=== PATIENT | female | born 1930 | race Caucasian/White ===

== ENCOUNTER 2016-05-17 06:17 | Observation (INO) | payer MEDICARE ==
[2016-05-17] MEDS ORDERED: Acetaminophen TAB* 325 MG PO ONE (07:14)
[2016-05-17] MEDS ORDERED: NS 0.9% 1000 ML* 1,000 ML IV ONE (07:16)
--- NOTE | 2016-05-17 07:19 | ED ---
Bakari Jaimes Claudia, scribed for Alexandra Castillo MD on 05/17/16 at 0715 . Complex/Multi-Sys Presentation - HPI Summary HPI Summary: 85 year old female presents to the ED via EMS from [facility]. Early this am pt had complaints of the inability to swallow and pt was transferred to [facility] ED. Upon arrival pt no longer felt that way and denies any complaints. Pt denies cp, sob, abd pain. Pt denies still, vision changes. No pain. In ED pt fever of 101F temporal is noted. Pt denies any abd pain, N/V and coughing . Pt does admit to some overall weakness. She notes that she is usually more active walking around with the assistance of her walker. Via pt files from [place] pt receives Rx for HTN, neuopathy, and pain. PSHx: appendectomy, hysterectomy. - History Of Current Complaint Chief Complaint: EDFever Time Seen by Provider: 05/17/16 07:01 Hx Obtained From: Patient Onset/Duration: Sudden Onset, Still Present Timing: Constant Severity Currently: None Severity Initially: Mild Location: Negative Associated Signs And Symptoms: Positive: Weakness, Cough, Fever. Negative: Nausea, Vomiting, Abdominal Pain - Allergies/Home Medications Allergies/Adverse Reactions: Allergies Allergy/AdvReac Type Severity Reaction Status Date / Time Baclofen Allergy Altered Verified 01/13/15 09:52 Mental Status Iodixanol [From Visipaque] Allergy Rash Verified 09/11/14 15:03 PMH/Surg Hx/FS Hx/Imm Hx Previously Healthy: Yes Endocrine/Hematology History: Denies: Hx Anticoagulant Therapy, Hx Diabetes, Hx Thyroid Disease Cardiovascular History: Reports: Hx Hypertension Respiratory History: Reports: Hx Sleep Apnea, Other Respiratory Problems/ Disorders - SLEEP APNEA Denies: Hx Asthma, Hx Chronic Obstructive Pulmonary Disease (COPD) GI History: Denies: Hx Ulcer Musculoskeletal History: Reports: Hx Arthritis, Hx Back Problems, Other Musculoskeletal History - MS Sensory History: Reports: Hx Cataracts, Hx Contacts or Glasses Opthamlomology History: Reports: Hx Cataracts, Hx Contacts or Glasses Neurological History: Reports: Other Neuro Impairments/Disorders - Multiple Sclerosis - Cancer History Cancer Type, Location and Year: Breast Cancer 1999, 2008 Lumpectomy. Basal Cell Carcinoma - working on removing them - Surgical History Surgery Procedure, Year, and Place: Lumpectomies, Hysterectomy, Tonsilectomy 1937, Appendectomy 194, Left Wrist surgery 1971, Hip Replacement Right 1992, . Infectious Disease History: No Infectious Disease History: Denies: Hx Hepatitis, Hx Human Immunodeficiency Virus (HIV), Traveled Outside the [place] in Last 30 Days - Family History Known Family History: Negative: Cardiac Disease - Social History Occupation: Retired Lives: [facility] Alcohol Use: None Alcohol Amount: ONE GLASS OF WINE WITH LUNCH Substance Use Type: Reports: None Smoking Status (MU): Never Smoked Tobacco Review of Systems Positive: Fever Eyes: Negative ENT: Negative Cardiovascular: Negative Respiratory: Negative Negative: Shortness Of Breath, Cough Negative: Abdominal Pain, Vomiting, Nausea Genitourinary: Negative Musculoskeletal: Negative Skin: Negative Positive: Weakness Psychological: Normal All Other Systems Reviewed And Are Negative: Yes Physical Exam Triage Information Reviewed: Yes Vital Signs On Initial Exam: Initial Vitals Temp Pulse Resp BP Pulse Ox 100.4 F 89 16 140/74 99 05/17/16 06:17 05/17/16 06:17 05/17/16 06:17 05/17/16 06:17 05/17/16 06:17 Vital Signs Reviewed: Yes Appearance: Positive: No Pain Distress, Ill-Appearing Skin: Positive: Warm, Other - face flushed Head/Face: Positive: Normal Head/Face Inspection Eyes: Positive: Normal, EOMI ENT: Positive: Normal ENT inspection. Negative: Pharyngeal erythema - lips dry , mm pasty Neck: Positive: Supple, Nontender, No Lymphadenopathy Respiratory/Lung Sounds: Positive: Clear to Auscultation, Breath Sounds Present. Negative: Rales, Wheezes Cardiovascular: Positive: Normal. Negative: RRR, Murmur Abdomen Description: Positive: Nontender, No Organomegaly, Soft Bowel Sounds: Positive: Present Musculoskeletal: Positive: Normal, Strength/ROM Intact Neurological: Positive: Normal, Sensory/Motor Intact, Alert, Oriented to Person Place, Time Psychiatric: Positive: Normal AVPU Assessment: Alert - Jv Coma Scale Best Eye Response: 4 - Spontaneous Best Motor Response: 6 - Obeys Commands Best Verbal Response: 5 - Oriented Diagnostics - Vital Signs Vital Signs Temp Pulse Resp BP Pulse Ox 05/17/16 06:34 87 98 05/17/16 06:17 100.4 F 89 16 140/74 99 - Laboratory Result Diagrams: 05/17/16 07:30 02/19/17 07:30 Lab Statement: Any lab studies that have been ordered have been reviewed, and results considered in the medical decision making process. - Radiology CXR Xray Interpretation: No Acute Changes - No acitive cardiopulmonary disease is noted. Radiology Interpretation Completed By: Radiologist Re-Evaluation - Re-Evaluation First Eval Re-Evaluation Time: 07:40 Comment: sats 94% on 2LNC. Pt with + UTI. start ceftriaxone Complex Multi-Symp Course/Dx Assessment/Plan: Pt presents by EMS with report of coughing and feeling choking this morning. pt without complaints at time of eval, but noted to be weak, low sats with fever. Will check CXR, flu, urine,. IVF. blood cx. lactic acid. cbc/cmp. EKG. apap. reassess - Diagnoses Provider Diagnoses: Sepsis, UTI (urinary tract infection), Fever - Physician Notifications Discussed Care Of Patient With: Dr. Mendez Tucker - 08:11 - accepting pt to hospitalist service - lactic acid and influenza pending Time Discussed With Above Provider: 08:11 Instructed by Provider To: Admit As Inpatient Discharge - Discharge Plan Condition: Fair Disposition: ADMITTED TO [facility] The documentation as recorded by the Bakari mirza Claudia accurately reflects the service I personally performed and the decisions made by me, Alexandra Castillo MD.
[2016-05-17 07:42] LABS: Urine Bacteria 1+ (Absent); Urine Bilirubin Negative (Negative); Urine Glucose Negative (Negative); Urine Nitrite Positive (Negative)
[2016-05-17 07:42] LABS: Hematocrit 37 % (35-47); Hemoglobin 12.5 g/dl (12.0-16.0); Mean Corpuscular HGB Conc 34 g/dl (31-36); Mean Corpuscular Hemoglobin 28 pg (27-31); Mean Corpuscular Volume 84 fL (80-97); Mean Platelet Volume 8 um3 (7.4-10.4); Red Blood Count 4.45 10^6/ul (4.0-5.4); Red Cell Distribution Width 14 % (10.5-15); White Blood Count 9.3 10^3/ul (3.5-10.8)
[2016-05-17] MEDS ORDERED: cefTRIAXone(*) 1 GM in NS 0.9% 50 ML* 50 ML IVPB ONE (07:52)
[2016-05-17 08:01] LABS: Albumin 3.5 g/dL (3.2-5.2); BUN/Creatinine Ratio 28.2 (8-20); Calcium 9.5 mg/dL (8.6-10.3); EGFR African American 100.9 (>60); EGFR Non-African American 78.4 (>60); Globulin 3.6 g/dL (2-4); Magnesium 2.1 mg/dL (1.9-2.7); Potassium 3.5 mmol/L (3.5-5.0); Total Bilirubin 0.4 mg/dL (0.2-1.0); Total Protein 7.1 g/dL (6.4-8.9)
[2016-05-17 08:03] LABS: Troponin I 0.01 ng/mL (<0.04)
--- NOTE | 2016-05-17 08:05 | RAD ---
HISTORY: Fever, cough COMPARISONS: February 07, 2016 VIEWS:1: Single frontal portable view of the chest at 7:30 AM FINDINGS: LINES AND TUBES: None. CARDIOMEDIASTINAL SILHOUETTE: The aorta is tortuous. The cardiomediastinal silhouette is otherwise normal for portable technique. PLEURA: The costophrenic angles are sharp. No pleural abnormalities are noted. LUNG PARENCHYMA: The lungs are clear. ABDOMEN: The upper abdomen is clear. There is no subphrenic gas. BONES AND SOFT TISSUES: No bone or soft tissue abnormalities are noted. IMPRESSION: NO ACTIVE CARDIOPULMONARY DISEASE.
[2016-05-17] MEDS ORDERED: NS 0.9% 1000 ML* 1,000 ML IV SCH ×2 (08:15→09:30)
[2016-05-17] MEDS ORDERED: Ondansetron INJ* 2 MG/ML VIAL IV PRN (09:22)
[2016-05-17] MEDS ORDERED: Acetaminophen TAB* 325 MG PO PRN (09:23)
[2016-05-17] MEDS ORDERED: oxyCODONE/Acetamin 5/325 MG* TAB PO PRN ×2 (09:23)
[2016-05-17] MEDS: Multivitamins/Minerals TAB PO SCH (11:18)
[2016-05-17] MEDS: Aspirin TAB* 325 MG PO SCH (11:18)
[2016-05-17] MEDS: Gabapentin CAP(*) 300 MG PO SCH (11:18)
[2016-05-17] MEDS: amLODIPine TAB* 5 MG PO SCH (11:18)
--- NOTE | 2016-05-17 11:42 | HP ---
HISTORY AND PHYSICAL: DATE OF ADMISSION: 05/17/16 PRIMARY CARE PHYSICIAN: Janusz Gardner MD CHIEF COMPLAINT: "Couldn't swallow." HISTORY OF PRESENT ILLNESS: Ms. Cyr is an 85-year-old female with a history of multiple sclerosis, who presents to the emergency room from [place] with complaints of the inability to swallow. The patient states that she woke up at approximately 6 a.m. and felt that there was "a lump" in the throat. The patient states that she had a difficult time clearing her own saliva. She did not try eating breakfast. Because of the difficulty with swallowing her saliva, she was brought to the emergency room for evaluation. The patient states that in general, she has been feeling at her baseline over the last couple of weeks. She denies any fevers or chills. She states that her appetite has been good. She denies any pain. She denies any shortness of breath. She does admit to cough x1 week, but states that she has been around individuals at [place] that have also been ill. She denies any dysuria. She denies diarrhea. She denies abdominal pain. PAST MEDICAL HISTORY: 1. Multiple sclerosis - wheelchair bound. 2. Hypertension. 3. History of recurrent urinary tract infections. 4. Chronic pain. 5. History of breast cancer, status post lumpectomy, radiation and tamoxifen. PAST SURGICAL HISTORY: 1. Left hip percutaneous pinning in February 2016. 2. Hysterectomy. MEDICATIONS: 1. Percocet 5/325 one tab p.o. q. 6 hours p.r.n. pain 1-5, two tabs p.o. q. 6 hours p.r.n. pain 6-10. 2. Senokot-S 2 tabs p.o. q.h.s. 3. Tylenol Extra Strength 1000 mg p.o. q. 8 hours p.r.n. pain. 4. Melatonin 3 mg p.o. q.h.s. 5. Gabapentin 600 mg at 8 a.m. and noon, 900 mg at 8 p.m. 6. Flexeril 10 mg p.o. q.h.s. 7. Silver sulfadiazine apply topically twice daily to coccyx wound. 8. Multivitamin one tab p.o. daily. 9. Celebrex 200 mg p.o. daily. 10. Aspirin 325 mg p.o. daily. 11. Amlodipine 10 mg p.o. daily. ALLERGIES: BACLOFEN. FAMILY HISTORY: Unknown. SOCIAL HISTORY: The patient is a nonsmoker. She does not drink alcohol. 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 She is . She lives at [place]. She has 4 children. Her son, Jim, is her healthcare proxy and is present with her at the time of her admission. REVIEW OF SYSTEMS: The patient denies any fevers, chills, or anorexia. No chest pain. No palpitations. No lower extremity edema. She admits to mild cough. No shortness of breath. No nausea, vomiting, abdominal pain, constipation, diarrhea or hematochezia. No hematuria. No dysuria. She does states that her right side is chronically weak. Her son adds that her right arm is contracted and tucked into her chest. She denies any sudden changes in vision. She admits to the dysphagia this morning, but otherwise, no issues. No joint pains or muscles pain out of the ordinary. No rashes. No anxiety or depression. PHYSICAL EXAMINATION GENERAL: The patient is a well-developed, elderly, chronically ill appearing female, lying in the stretcher, in no acute distress. VITAL SIGNS: Blood pressure 152/71, pulse 85, respirations 16, temperature 101 , O2 saturation 96% on 3 L. HEENT: Pupils are round. Extraocular muscles are intact. Oropharynx is clear. Oral mucosa is dry. There is no submandibular, cervical or supraclavicular adenopathy. NECK: Thyroid is not enlarged. No thyroid nodule is noted. PULMONARY: Lungs are clear to auscultation bilaterally with few coarse sounds at the bases. CARDIAC: Normal S1, S2. Regular rate and rhythm. I do not appreciate any murmurs. There is no lower extremity edema. ABDOMEN: Bowel sounds are present. Abdomen is soft, it is moderately distended (at baseline per son), nontender. MUSCULOSKELETAL: There is no cyanosis or clubbing of the digits. The patient' s right arm is contracted and pulled up to her chest. She has full range of motion of the left upper extremity. Range of motion of the lower extremities is not tested as the patient is unable to participate in this. SKIN: Warm and dry. I did not appreciate any rashes, though the patient does have findings of sun damage to her face. She has a linear surgical wound across the bridge of her nose with sutures in place from recent removal of a skin lesion concerning for cancer. NEUROLOGIC: Deferred at this time as the patient has a difficult time cooperating given her history of multiple sclerosis. PSYCH: The patient is alert. She is oriented x3. She appears very flat and wiped out. LABORATORY DATA: WBC 9.3, hemoglobin of 12.5, hematocrit of 37, platelets 302. Sodium 137, potassium 3.5, chloride 99, CO2 of 29, BUN 20, creatinine 0.71 , and glucose 146, lactic acid 1.5. Calcium 9.5. Magnesium of 2.1, bilirubin 0.4, AST 28, ALT 19, alk phos 114. Troponin 0.01, BNP 75, albumin 3.5. Urinalysis reveals a specific gravity of 1.014, 2+ blood, positive nitrites, 2+ leukocyte esterase, 3+ wbc, 2+ rbc, and 1+ bacteria. Influenza A and B negative. Chest x-ray - no active cardiopulmonary disease. ASSESSMENT AND PLAN: Ms. Cyr is an 85-year-old female who has a history of recurrent urinary tract infections, multiple sclerosis and hypertension, who presents to the emergency room with a sensation that she cannot swallow which has since resolved, but was found to have a fever and probable urinary tract infection. 1. Urinary tract infection. The patient is prone to urinary tract infections per her son. Looking back at her previous microbiology, the patient frequency grows E. coli and Aerococcus species. This has been pansensitive in the past. She will be continued on ceftriaxone that was initiated by the emergency room. We will await the urine culture and sensitivities. The patient's fever is likely secondary to her UTI; however, we will need to monitor for other signs of infection that could be leading to her fever. The patient does give a history of being around individuals at her assisted living facility that have been ill and perhaps she has a viral URI leading to her fever. We will monitor her symptoms. 2. Hypertension. The patient's blood pressure is moderately elevated at this time. However, she has not had her usual dose of amlodipine. We will monitor her blood pressure and treat as needed. 3. Multiple sclerosis. The patient is managed symptomatically. She has quite severe disease. She is wheelchair bound. 4. Chronic pain. The patient will maintained on her usual home medication regimen. 5. DVT prophylaxis. According to the Adult Thrombosis Prophylaxis Risk Factor Assessment Guide, the patient has a total risk factor score of 5, making her high risk. She will be placed on heparin 5000 units subcutaneous q. 8 hours. 6. Code status is DNR and the MOLST form has been updated. Again, the patient indicates that her son, Jim, is her healthcare proxy. TIME SPENT: 65 minutes were spent on admitting this patient. [id number]/[facility] #: [id number] CLARE
[2016-05-17] MEDS: Heparin VIAL(*) 5000 UNITS/ML VIAL (FIVE THOUSAND) SUBCUT SCH ×2 (13:51→20:14)
[2016-05-17] MEDS ORDERED: Gabapentin CAP(*) 300 MG PO SCH (20:00)
[2016-05-17] MEDS: Silver Sulfadiazine 1%* 20 GM TOPICAL SCH (20:13)
[2016-05-17] MEDS ORDERED: Cyclobenzaprine TAB* 10 MG PO SCH (21:00)
[2016-05-17] MEDS ORDERED: Senna TAB PO SCH (21:00)
[2016-05-17] MEDS ORDERED: Melatonin (NF) 3 MG TAB PO SCH (21:00)
[2016-05-17] MEDS ORDERED: Docusate CAP* 100 MG PO SCH (21:00)
[2016-05-18] MEDS: Heparin VIAL(*) 5000 UNITS/ML VIAL (FIVE THOUSAND) SUBCUT SCH ×2 (05:04→13:17)
[2016-05-18 06:58] LABS: Hematocrit 37 % (35-47); Hemoglobin 12.2 g/dl (12.0-16.0); Mean Corpuscular HGB Conc 33 g/dl (31-36); Mean Corpuscular Hemoglobin 28 pg (27-31); Mean Corpuscular Volume 85 fL (80-97); Mean Platelet Volume 8 um3 (7.4-10.4); Red Cell Distribution Width 14 % (10.5-15); White Blood Count 9.5 10^3/ul (3.5-10.8)
[2016-05-18 07:13] LABS: BUN/Creatinine Ratio 12.7 (8-20); Calcium 8.8 mg/dL (8.6-10.3); EGFR African American 135.4 (>60); EGFR Non-African American 105.3 (>60)
[2016-05-18 07:57] VITALS: BP 143/69
[2016-05-18] MEDS ORDERED: cefTRIAXone VIAL(*) 1,000 MG in NS 0.9% 50 ML* 50 ML IVPB SCH (08:00)
[2016-05-18] MEDS: Aspirin TAB* 325 MG PO SCH (08:36)
[2016-05-18] MEDS: Gabapentin CAP(*) 300 MG PO SCH ×2 (08:36→13:16)
[2016-05-18] MEDS: Multivitamins/Minerals TAB PO SCH (08:36)
[2016-05-18] MEDS: amLODIPine TAB* 5 MG PO SCH (08:37)
[2016-05-18] MEDS: Silver Sulfadiazine 1%* 20 GM TOPICAL SCH (08:58)
[2016-05-18] MEDS ORDERED: celeCOXIB CAP* 200 MG PO SCH (09:00)
[2016-05-18] MEDS ORDERED: Potassium Chlor TAB* 20 MEQ TAB.ER PO ONE (10:49)
--- NOTE | 2016-05-18 11:05 | PN ---
Subjective Date of Service: 05/18/16 Interval History: Pt is feeling ok. She states she needs to be changed. She denies any pain. No SOB. Objective Active Medications: Acetaminophen (Tylenol Tab*) 975 mg PO Q8H PRN PRN Reason: PAIN Amlodipine Besylate (Norvasc Tab*) 10 mg PO DAILY [facility], [facility] Last Admin: 05/18/16 08:37 Dose: 10 mg Aspirin (Aspirin Tab*) 325 mg PO DAILY [facility] Last Admin: 05/18/16 08:36 Dose: 325 mg Celecoxib (Celebrex Cap*) 200 mg PO DAILY [facility] Last Admin: 05/18/16 08:36 Dose: 200 mg Cyclobenzaprine HCl (Flexeril Tab*) 10 mg PO BEDTIME [facility] Last Admin: 05/17/16 20:12 Dose: 10 mg Docusate Sodium (Colace Cap*) 100 mg PO BEDTIME [facility] Last Admin: 05/17/16 20:13 Dose: 100 mg Gabapentin (Neurontin Cap(*)) 600 mg PO 0800,1200 [facility] Last Admin: 05/18/16 08:36 Dose: 600 mg Gabapentin (Neurontin Cap(*)) 900 mg PO 2000 [facility] Last Admin: 05/17/16 20:12 Dose: 900 mg Heparin Sodium (Porcine) (Heparin Vial(*)) 5,000 units SUBCUT Q8HR [facility] Last Admin: 05/18/16 05:04 Dose: 5,000 units Ceftriaxone Sodium 1,000 mg/ (Sodium Chloride) 50 mls @ 200 mls/hr IVPB Q24H [facility] Last Admin: 05/18/16 08:29 Dose: 200 mls/hr Melatonin (Melatonin (Nf)) 3 mg PO BEDTIME [facility] PRN Reason: Protocol Last Admin: 05/17/16 20:13 Dose: 3 mg Multivitamins/Minerals (Theragran/Minerals Tab*) 1 tab PO DAILY [facility] Last Admin: 05/18/16 08:36 Dose: 1 tab Ondansetron HCl (Zofran Inj*) 4 mg IV Q6H PRN PRN Reason: NAUSEA Oxycodone/Acetaminophen (Percocet 5/325 Tab*) 1 tab PO Q6HR PRN PRN Reason: Pain 1-5 Oxycodone/Acetaminophen (Percocet 5/325 Tab*) 2 tab PO Q6H PRN PRN Reason: pain 6-10 Senna (Senokot Tab*) 2 tab PO BEDTIME [facility] Last Admin: 05/17/16 20:13 Dose: 2 tab Silver Sulfadiazine (Silvadine 1%*) 1 applic TOPICAL BID [facility] Last Admin: 05/18/16 08:58 Dose: 1 applic Vital Signs 05/17/16 05/17/16 05/17/16 11:18 11:24 12:52 Temperature Pulse Rate Respiratory 20 20 16 Rate Blood Pressure (mmHg) O2 Sat by Pulse Oximetry 05/17/16 05/17/16 05/17/16 16:06 19:57 20:00 Temperature 97.7 F 98.2 F Pulse Rate 87 86 Respiratory 20 18 Rate Blood Pressure 140/64 140/70 (mmHg) O2 Sat by Pulse 93 94 Oximetry 05/17/16 05/17/16 05/17/16 20:12 22:12 23:38 Temperature 97.4 F Pulse Rate 87 Respiratory 16 18 18 Rate Blood Pressure 148/65 (mmHg) O2 Sat by Pulse 93 Oximetry 05/18/16 05/18/16 07:52 08:36 Temperature 98.4 F Pulse Rate 93 Respiratory 16 20 Rate Blood Pressure 143/69 (mmHg) O2 Sat by Pulse 89 Oximetry Oxygen Devices in Use Now: None Appearance: Elderly female sitting up in bed, NAD Eyes: No Scleral Icterus Ears/Nose/Mouth/Throat: Mucous Membranes Moist Respiratory: Symmetrical Chest Expansion and Respiratory Effort, Clear to Auscultation Cardiovascular: NL Sounds; No Murmurs; No JVD, RRR, No Edema Abdominal: NL Sounds; No Tenderness; No Distention Extremities: No Clubbing, Cyanosis Skin: No Rash or Ulcers, No Nodules or Sclerosis Neurological: Alert and Oriented x 3 Result Diagrams: 05/18/16 06:42 05/18/16 06:42 Assess/Plan/Problems-Billing Ms Cyr is an 85 yo F who has a h/o MS and is wheelchair bound and has a h/o recurrent UTIs who presented to the ER with c/o inability to swallow which quickly subsided but was then found to have a fever and evidence of UTI. - Patient Problems (1) UTI (urinary tract infection) Current Visit: Yes Status: Acute Comment: The patient's urine has grown E coli. This is what she frequently grows. Resistant to quinolones and bactrim. Will treat with amoxicillin 500mg BID x 30 days then have the patient follow up with Dr. Mendez to determine if she should remain on furhter suppressive Abx therapy. (2) HTN (hypertension) Current Visit: Yes Status: Chronic Code(s): I10 - ESSENTIAL (PRIMARY) HYPERTENSION SNOMED Code(s): 60298611 Comment: BP is under fair control. Continue amlodipine. (3) Multiple sclerosis Current Visit: Yes Status: Chronic Code(s): G35 - MULTIPLE SCLEROSIS SNOMED Code(s): 35076511 Comment: Continue gabapentin for pain. She is wheelchair bound. (4) Chronic pain Current Visit: Yes Status: Chronic Code(s): G89.29 - OTHER CHRONIC PAIN SNOMED Code(s): 26234434 Comment: Continue gabapentin and prn oxycodone. (5) DVT prophylaxis Current Visit: Yes Status: Acute Code(s): TQO9835 - SNOMED Code(s): 934876742 Comment: SQ heparin (6) DNR (do not resuscitate) Current Visit: Yes Status: Acute
--- NOTE | 2016-05-18 15:01 | PN ---
Progress Note - Progress Note Note: Sutures removed from across the bridge of the patient's nose as requested by the dermatology office as pt missed her appt today. The office will contact the patient for follow up appt.
--- NOTE | 2016-05-18 22:55 | DS ---
DISCHARGE SUMMARY: DATE OF ADMISSION: 05/17/16 DATE OF DISCHARGE: 05/18/16 PRIMARY CARE PROVIDER: Janusz Gardner MD PRINCIPAL DIAGNOSIS: E. coli urinary tract infection. SECONDARY DIAGNOSES: 1. Multiple sclerosis - wheelchair bound. 2. Hypertension. 3. Chronic pain. DISCHARGE MEDICATIONS: 1. Percocet 5/325 one tab p.o. q.6 hours p.r.n. pain 1 to 5, two tabs p.o. q.6 hours p.r.n. pain 6 to 10. 2. Senokot-S 2 tabs p.o. q.h.s. 3. Tylenol Extra Strength 1000 mg p.o. q.8 hours p.r.n. pain. 4. Melatonin 3 mg p.o. q.h.s. 5. Gabapentin 600 mg p.o. at 8 a.m. and noon, 900 mg p.o. at 8 p.m. 6. Flexeril 10 mg p.o. q.h.s. 7. Silver sulfadiazine apply topically twice daily to coccyx wound. 8. Multivitamin 1 tab p.o. daily. 9. Celebrex 200 mg p.o. daily. 10. Aspirin 325 mg p.o. daily. 11. Amlodipine 10 mg p.o. daily. 12. Amoxicillin 500 mg p.o. b.i.d. x30 days. HOSPITAL COURSE: Ms. Cyr is an 85-year-old female with advanced multiple sclerosis who is essentially wheelchair bound and has a history of recurrent urinary tract infections who presents to the emergency room with complaints of inability to swallow. This quickly resolved once she was in ER. While in the ER, however, the patient was found to be febrile to 101 with an abnormal urinalysis. The patient was admitted for evaluation of urinary tract infection. The patient was found to have E. coli in her urine. The patient frequently grows E. coli. I did discuss the case briefly with Dr. Mendez who recommended discharging the patient on amoxicillin 500 mg p.o. twice daily for 1 month and following up with him in outpatient setting to determine if further prolonged suppressive therapy would be beneficial. The patient is feeling about the same as she did in the ER. She is able to swallow without any difficulties and feels that she is ready for discharge back to [facility] today. FOLLOWUP CONCERNS: The patient is being discharged home today, 05/18/16. She is to follow up with Dr. Gardner in the next 4 to 5 days. ACTIVITY LEVEL: As tolerated. DIET: Regular. CONDITION ON DISCHARGE: Stable. TIME SPENT: 25 minutes were spent discharging this patient. CC: Janusz Gardner MD* [id number]/[facility] #: [id number] MTDD
== END 2016-05-18 16:00 ==
LOC: ED 06:17 → MED 08:10
PROVIDERS: ADMIT Hospitalist; ATTEND Hospitalist
DX: N39.0 Urinary tract infection, site not specified (principal); B96.20 Unspecified Escherichia coli [E. coli] as the cause of diseases classified elsewhere; G35 Multiple sclerosis; I10 Essential (primary) hypertension; G89.29 Other chronic pain; Z79.82 Long term (current) use of aspirin; Z79.899 Other long term (current) drug therapy; Z88.8 Allergy status to other drugs, medicaments and biological substances; Z85.3 Personal history of malignant neoplasm of breast
CPT/HCPCS: 36415; 71010; 80048; 80053; 81003; 81015; 83605; 83735; 83880; 84484; 85025; 87040; 87077; 87086; 87186; 87502; 96361; 96365; 96372; 96375; 99285; A9270-GY; G0378; J0696; J1644

== ENCOUNTER 2016-07-11 12:43 | Observation (INO) | payer MEDICARE ==
[2016-07-11] MEDS ORDERED: NS 0.9% 1000 ML* 1,000 ML IV ONE (13:25)
[2016-07-11] MEDS ORDERED: cefTRIAXone(*) 1 GM in NS 0.9% 50 ML* 50 ML IVPB ONE (13:25)
[2016-07-11 13:38] LABS: Hematocrit 36 % (35-47); Hemoglobin 12.1 g/dl (12.0-16.0); Mean Corpuscular HGB Conc 33 g/dl (31-36); Mean Corpuscular Hemoglobin 27 pg (27-31); Mean Corpuscular Volume 82 fL (80-97); Mean Platelet Volume 8 um3 (7.4-10.4); Red Blood Count 4.46 10^6/ul (4.0-5.4); Red Cell Distribution Width 16 % (10.5-15); White Blood Count 8.9 10^3/ul (3.5-10.8)
[2016-07-11 14:09] LABS: Albumin 3.5 g/dL (3.2-5.2); BUN/Creatinine Ratio 22.2 (8-20); C Reactive Protein 15.61 mg/L (< 5.00); EGFR African American 99.2 (>60); EGFR Non-African American 77.2 (>60); Globulin 3.5 g/dL (2-4); Potassium 3.7 mmol/L (3.5-5.0); Total Bilirubin 0.4 mg/dL (0.2-1.0)
--- NOTE | 2016-07-11 14:20 | RAD ---
HISTORY: Sepsis, generalized illness COMPARISONS: May 17, 2016 VIEWS:1: Single frontal portable view of the chest at 2:10 PM FINDINGS: LINES AND TUBES: None. CARDIOMEDIASTINAL SILHOUETTE: The cardiomediastinal silhouette is normal for portable technique. PLEURA: The costophrenic angles are sharp. No pleural abnormalities are noted. LUNG PARENCHYMA: The lungs are clear. ABDOMEN: The upper abdomen is clear. There is no subphrenic gas. BONES AND SOFT TISSUES: No bone or soft tissue abnormalities are noted. IMPRESSION: NO ACTIVE CARDIOPULMONARY DISEASE.
[2016-07-11] MEDS ORDERED: Ondansetron INJ* 2 MG/ML VIAL IV PRN (14:56)
[2016-07-11] MEDS ORDERED: RINSE MT PRN (14:59)
[2016-07-11] MEDS ORDERED: Enoxaparin(*) 40 MG/0.4 ML SYR SUBCUT SCH (15:00)
[2016-07-11] MEDS ORDERED: Cyclobenzaprine TAB* 10 MG PO PRN (15:22)
[2016-07-11] MEDS ORDERED: Melatonin (NF) ** ENTER STRENGTH IN LABEL DIRECTIONS PO PRN (15:24)
[2016-07-11] MEDS: NS 0.9% 1000 ML* 1,000 ML IV SCH (16:52)
[2016-07-11] MEDS: Magic Mouth Was-BEN/MAAL/LIDO SWISH SWAL SCH ×2 (17:00→21:14)
[2016-07-11] MEDS: oxyCODONE/Acetamin 5/325 MG* TAB PO PRN (19:43)
[2016-07-11] MEDS ORDERED: Gabapentin CAP(*) 300 MG PO SCH (21:00)
[2016-07-11] MEDS: Acetaminophen TAB* 325 MG PO PRN ×2 (21:14→21:18)
[2016-07-11] MEDS: Silver Sulfadiazine 1%* 20 GM TOPICAL SCH (21:15)
--- NOTE | 2016-07-11 21:57 | ED ---
Abdoulaye Jaimes Erika, scribed for Carl Powell MD on 07/11/16 at 1407 . Throat Pain/Nasal Congestion - HPI Summary HPI Summary: Patient is an 85-year-old female presenting to the ED with a CC of a constant sore throat starting 3 days ago. Patient also reports a fever yesterday. She denies any nasal congestion or cough. Hx MS. - History of Current Complaint Chief Complaint: EDFever Time Seen by Provider: 07/11/16 13:14 Hx Obtained From: Patient Onset/Duration: Gradual Onset, Lasting Days, Still Present Severity: Moderate Associated Signs And Symptoms: Negative: Sinus Discomfort, Nasal Discharge Cough: None - Allergies/Home Medications Allergies/Adverse Reactions: Allergies Allergy/AdvReac Type Severity Reaction Status Date / Time Baclofen Allergy Altered Verified 01/13/15 09:52 Mental Status Iodixanol [From Visipaque] Allergy Rash Verified 09/11/14 15:03 Home Medications: Home Medications Furosemide TAB* [Lasix TAB*] 20 mg PO DAILY PRN 07/11/16 [History Confirmed ] Gabapentin CAP(*) [Neurontin 300 CAP(*)] 900 mg PO 1700 07/11/16 [History Confirmed 07/11/16] PMH/Surg Hx/FS Hx/Imm Hx Endocrine/Hematology History: Denies: Hx Anticoagulant Therapy, Hx Diabetes, Hx Thyroid Disease Cardiovascular History: Reports: Hx Hypertension Respiratory History: Reports: Hx Sleep Apnea, Other Respiratory Problems/ Disorders - SLEEP APNEA Denies: Hx Asthma, Hx Chronic Obstructive Pulmonary Disease (COPD) GI History: Denies: Hx Ulcer Musculoskeletal History: Reports: Hx Arthritis, Hx Back Problems Sensory History: Reports: Hx Cataracts, Hx Contacts or Glasses Opthamlomology History: Reports: Hx Cataracts, Hx Contacts or Glasses Neurological History: Reports: Other Neuro Impairments/Disorders - Multiple Sclerosis - Cancer History Cancer Type, Location and Year: Breast Cancer 1999, 2009 Lumpectomy. Basal Cell Carcinoma - working on removing them - Surgical History Surgery Procedure, Year, and Place: Lumpectomies, Hysterectomy, Tonsilectomy 1936, Appendectomy 1947, Left Wrist surgery 1971, Hip Replacement Right 1992, . Infectious Disease History: Denies: Hx Hepatitis, Hx Human Immunodeficiency Virus (HIV), Traveled Outside the [place] in Last 30 Days - Family History Known Family History: Negative: Cardiac Disease - Social History Occupation: Retired Alcohol Use: None Hx Substance Use: No Substance Use Type: Reports: None Hx Tobacco Use: No Smoking Status (MU): Never Smoked Tobacco Review of Systems Positive: Fever Positive: Sore Throat. Negative: Nasal Discharge Negative: Cough All Other Systems Reviewed And Are Negative: Yes Physical Exam Triage Information Reviewed: Yes Vital Signs On Initial Exam: Initial Vitals Temp Pulse Resp BP Pulse Ox 100 F 81 20 154/69 94 07/11/16 13:19 07/11/16 13:19 07/11/16 13:19 07/11/16 13:19 07/11/16 13:19 Vital Signs Reviewed: Yes Appearance: Positive: Well-Appearing, No Pain Distress Skin: Positive: Warm, Skin Color Reflects Adequate Perfusion, Dry, Other - Skin tents Head/Face: Positive: Normal Head/Face Inspection Eyes: Positive: Normal ENT: Positive: Pharyngeal erythema, Other - Mucus membranes very dry Neck: Positive: Supple, Nontender Respiratory/Lung Sounds: Positive: Clear to Auscultation, Breath Sounds Present Cardiovascular: Positive: RRR Abdomen Description: Positive: Nontender, Soft Bowel Sounds: Positive: Present Musculoskeletal: Positive: Other - Paralyzed right side Neurological: Positive: Normal Psychiatric: Positive: Affect/Mood Appropriate Diagnostics - Vital Signs Vital Signs Temp Pulse Resp BP Pulse Ox 07/11/16 13:19 100 F 81 20 154/69 94 - Laboratory Lab Results: Lab Results 07/11/16 07/11/16 07/11/16 Range/Units 13:20 13:20 13:20 WBC 8.9 (3.5-10.8) 10^3/ul RBC 4.46 (4.0-5.4) 10^6/ul Hgb 12.1 (12.0-16.0) g/dl Hct 36 (35-47) % MCV 82 (80-97) fL MCH 27 (27-31) pg MCHC 33 (31-36) g/dl RDW 16 H (10.5-15) % Plt Count 245 (150-450) 10^3/ul MPV 8 (7.4-10.4) um3 Neut % (Auto) 41.9 (38-83) % Lymph % (Auto) 42.1 (25-47) % [place] % (Auto) 9.5 H (1-9) % Eos % (Auto) 5.3 (0-6) % Baso % (Auto) 1.2 (0-2) % Absolute Neuts (auto) 3.7 (1.5-7.7) 10^3/ul Absolute Lymphs (auto) 3.7 (1.0-4.8) 10^3/ul Absolute Monos (auto) 0.8 (0-0.8) 10^3/ul Absolute Eos (auto) 0.5 (0-0.6) 10^3/ul Absolute Basos (auto) 0.1 (0-0.2) 10^3/ul Absolute Nucleated RBC 0.01 10^3/ul Nucleated RBC % 0.1 INR (Anticoag Therapy) 1.03 (0.89-1.11) Sodium 137 (133-145) mmol/L Potassium 3.7 (3.5-5.0) mmol/L Chloride 101 (101-111) mmol/L Carbon Dioxide 28 (22-32) mmol/L Anion Gap 8 (2-11) mmol/L BUN 16 (6-24) mg/dL Creatinine 0.72 (0.51-0.95) mg/dL Est GFR ( Amer) 99.2 (>60) Est GFR (Non-Af Amer) 77.2 (>60) BUN/Creatinine Ratio 22.2 H (8-20) Glucose 112 H (70-100) mg/dL Lactic Acid (0.5-2.0) mmol/L Calcium 9.0 (8.6-10.3) mg/dL Total Bilirubin 0.40 (0.2-1.0) mg/dL AST 25 (13-39) U/L ALT 16 (7-52) U/L Alkaline Phosphatase 95 (34-104) U/L Troponin I 0.00 (<0.04) ng/mL C-Reactive Protein 15.61 H (< 5.00) mg/L Total Protein 7.0 (6.4-8.9) g/dL Albumin 3.5 (3.2-5.2) g/dL Globulin 3.5 (2-4) g/dL Albumin/Globulin Ratio 1.0 (1-3) Influenza A (Rapid) (Negative) Influenza B (Rapid) (Negative) Group A Strep Rapid (Negative) 04/15/17 04/15/17 04/15/17 Range/Units 13:20 13:25 14:22 WBC (3.5-10.8) 10^3/ul RBC (4.0-5.4) 10^6/ul Hgb (12.0-16.0) g/dl Hct (35-47) % MCV (80-97) fL MCH (27-31) pg MCHC (31-36) g/dl RDW (10.5-15) % Plt Count (150-450) 10^3/ul MPV (7.4-10.4) um3 Neut % (Auto) (38-83) % Lymph % (Auto) (25-47) % [place] % (Auto) (1-9) % Eos % (Auto) (0-6) % Baso % (Auto) (0-2) % Absolute Neuts (auto) (1.5-7.7) 10^3/ul Absolute Lymphs (auto) (1.0-4.8) 10^3/ul Absolute Monos (auto) (0-0.8) 10^3/ul Absolute Eos (auto) (0-0.6) 10^3/ul Absolute Basos (auto) (0-0.2) 10^3/ul Absolute Nucleated RBC 10^3/ul Nucleated RBC % INR (Anticoag Therapy) (0.89-1.11) Sodium (133-145) mmol/L Potassium (3.5-5.0) mmol/L Chloride (101-111) mmol/L Carbon Dioxide (22-32) mmol/L Anion Gap (2-11) mmol/L BUN (6-24) mg/dL Creatinine (0.51-0.95) mg/dL Est GFR ( Amer) (>60) Est GFR (Non-Af Amer) (>60) BUN/Creatinine Ratio (8-20) Glucose (70-100) mg/dL Lactic Acid 0.9 (0.5-2.0) mmol/L Calcium (8.6-10.3) mg/dL Total Bilirubin (0.2-1.0) mg/dL AST (13-39) U/L ALT (7-52) U/L Alkaline Phosphatase (34-104) U/L Troponin I (<0.04) ng/mL C-Reactive Protein (< 5.00) mg/L Total Protein (6.4-8.9) g/dL Albumin (3.2-5.2) g/dL Globulin (2-4) g/dL Albumin/Globulin Ratio (1-3) Influenza A (Rapid) Negative (Negative) Influenza B (Rapid) Negative (Negative) Group A Strep Rapid Negative (Negative) Result Diagrams: 07/11/16 13:20 07/11/16 13:20 Lab Statement: Any lab studies that have been ordered have been reviewed, and results considered in the medical decision making process. - Radiology CXR Radiology Interpretation Completed By: Radiologist - IMPRESSION: NO ACTIVE CARDIOPULMONARY DISEASE. - EKG 14:25 Cardiac Rate: NL - at 80 bpm EKG Rhythm: Sinus Rhythm ST Segment: Non-Specific EENT Course/Dx - Course Course Of Treatment: Ms. Cyr presented febrile, meeting sepsis and very dehydrated. - Diagnoses Provider Diagnoses: FEVER, Dehydration - Provider Notifications Discussed Care of Patient with: Dr. Patterson (hospitalist) at 14:23 - agrees to admit Discharge - Discharge Plan Condition: Stable Disposition: ADMITTED TO [facility] documentation as recorded by the Abdoulaye mirza Erika accurately reflects the service I personally performed and the decisions made by , Carl Powell MD.
[2016-07-11] MEDS ORDERED: CMCS - Melatonin (NF) 3 MG TAB PO PRN ×2 (22:02→22:46)
--- NOTE | 2016-07-11 22:30 | HP ---
ADMISSION HISTORY AND PHYSICAL: ADDENDUM: DATE OF ADMISSION: 07/11/16 MEDICATIONS: Medication reconciliation completed after receipt of the medications from [place]. Medications are as follows: 1. Amlodipine 10 mg daily. 2. Aspirin 325 mg daily. 3. Celecoxib 200 mg daily. 4. Cyclobenzaprine 10 mg at bedtime. 5. Daily-Nestor daily. 6. Gabapentin, recently increased 900 mg at bedtime and 600 mg twice daily. 7. Lasix 20 mg daily, was completed on , 07/04/16 for swelling in her feet after 10 days of receipt. 8. Melatonin 3 mg at bedtime. 9. Senna 2 tabs at bedtime. 10. Ensure Plus 1 can twice daily. 11. Silver sulfadiazine 1% cream to coccyx twice daily. 12. Acetaminophen 1000 mg every 8 hours as needed for fever. 13. Oxycodone and acetaminophen 5/325 mg 1 to 2 tabs every 6 hours as needed for pain. All medications restarted except for Lasix, which has been terminated. Mary, as the patient indica kami diarrhea. [id number]/[facility] #: [id number]
--- NOTE | 2016-07-11 23:03 | HP ---
ADMISSION HISTORY AND PHYSICAL: DATE OF ADMISSION: 07/11/16 PRIMARY CARE PROVIDER: Janusz Gardner MD HEALTH CARE PROXY: Her son, Jim. CODE STATUS: DNR/DNI, confirmed with the patient. SOURCE OF INFORMATION: History obtained from interview with the patient, review of past medical records. RELIABILITY: Fair. CHIEF COMPLAINT: Sore throat. HISTORY OF PRESENT ILLNESS: This is an 85-year-old female with past medical history of MS, currently wheelchair bound, had been in her usual state of health , approximately 7 days prior started noticing increasingly sore throat. She had no associated cough or nausea or vomiting; however, did notice increasing fatigue over the following week associated with decreased p.o. intake. She saw her PCP 3 days prior to presentation, thought this represented viral illness and had no new medications prescribed. At [facility] today, she was difficult to wake in the morning and go on to continue sleeping at lunch, therefore she was directed to the emergency room. She denies any symptoms including dysuria, frequency, or hesitancy but does note diarrhea approximately once daily for the last week. PAST MEDICAL HISTORY: Multiple sclerosis; hypertension; history of recurrent urinary tract infections; chronic pain, cannot identify where at this time; prior history of breast cancer, status post lumpectomy and radiation therapy and denies chemotherapy. History of left hip pinning in 2016 and hysterectomy. MEDICATIONS: The patient cannot identify her medications at this time. This author discussed with [facility] and they are currently faxing over active medication list. An addendum will appear after this dictation detailing the patient's active medications. ALLERGIES: To BACLOFEN. FAMILY HISTORY: Denies family history of CAD, lung diseases, or multiple sclerosis. SOCIAL HISTORY: She lives at [facility]. No tobacco, alcohol, or illicit. Has 4 children. REVIEW OF SYSTEMS: Positive for sore throat and odynophagia, increasing fatigue , and decreased p.o. intake. Otherwise negative for all other systems reviewed. PHYSICAL EXAMINATION GENERAL: An elderly woman, lying 35 degrees in bed, interactive, pleasant, in no apparent distress. VITAL SIGNS: Blood pressure 154/69, heart rate 81, respiratory rate is 18, she is 98% on room air, and T-max in the emergency room was 100 degrees Fahrenheit. HEENT: Oropharynx is dry. There are no exudates. There is mild posterior erythema. Very dry mucous membranes. Sclerae are anicteric. NECK: Non-elevated JVD. No cervical or supraclavicular lymphadenopathy. LUNGS: Clear to auscultation. HEART: She has regular rate and rhythm. Soft 1/6 to 2/6 systolic ejection murmur. ABDOMEN: Soft, nontender, and nondistended. EXTREMITIES: Warm and well perfused. She has contracted right upper extremity and hand. Trace lower extremity edema. NEUROLOGIC: She is A and O x3. Cranial nerves II through XII are intact. SKIN: Shows a shade complexion in her face as well as some telangiectasia on her face and around her throat. PSYCH: She has no apparent anxiety, agitation, or depression. DIAGNOSTIC STUDIES/LAB DATA: Labs reviewed notable for BUN of 16, creatinine of 0.72, glucose 112, and lactic acid 0.9. CRP is 15. White blood cell count of 8.9, 41% neutrophils, hemoglobin 12, MCV of 82, and platelets 245. Negative for influenza and group A strep on rapid test. Data review: Chest x-ray: Impression: No active cardiopulmonary disease. EKG: Normal sinus rhythm, left axis. Normal intervals. Late R-wave progression. No ST or T-wave changes. ASSESSMENT AND PLAN: This is an 85-year-old female with past medical history of multiple sclerosis, now wheelchair bound, presenting with sore throat for a week associated with fever and increasing fatigue in the setting of decreased p.o. intake. 1. Sore throat: In the absence of leukocytosis, exudates, lymphadenopathy, and in the presence of negative rapid strep I doubt bacterial infection. Received ceftriaxone once in the emergency room and we will not continue. We will reevaluate tomorrow for need. Continue the antibiotics. Prescribed Magic Mouthwash as well as Biotene for xerostomia. Monitor fevers. Tylenol for fevers and pain. 2 L normal saline in the setting of fevers and overall dehydration in the setting of diarrhea and concurrent fevers and infection whether it be viral or bacterial. 2. Hypertension: Restart medications once medication reconciliation completed. 3. Chronic pain: Tylenol, administer oxycodone as needed. 4. DVT prophylaxis: Lovenox. 5. Code status: DNR/DNI. ADDENDUM TO HISTORY AND PHYSICAL: DATE OF ADMISSION: 07/11/16 MEDICATIONS: Medication reconciliation completed after receipt of the medications from [facility]. Medications are as follows: 1. Amlodipine 10 mg daily. 2. Aspirin 325 mg daily. 3. Celecoxib 200 mg daily. 4. Cyclobenzaprine 10 mg at bedtime. 5. Daily-Nestor daily. 6. Gabapentin, recently increased 900 mg at bedtime and 600 mg twice daily. 7. Lasix 20 mg daily, was completed on , 07/04/16 for swelling in her feet after 10 days of receipt. 8. Melatonin 3 mg at bedtime. 9. Senna 2 tabs at bedtime. 10. Ensure Plus 1 can twice daily. 11. Silver sulfadiazine 1% cream to coccyx twice daily. 12. Acetaminophen 1000 mg every 8 hours as needed for fever. 13. Oxycodone and acetaminophen 5/325 mg 1 to 2 tabs every 6 hours as needed for pain. All medications restarted except for Lasix, which has been terminated. Senna, as the patient indicates diarrhea. CC: Dr. Gardner* [id number]/[facility] #: [id number]/[facility] #: [id number] [facility]
[2016-07-12] MEDS: NS 0.9% 1000 ML* 1,000 ML IV SCH (00:44)
[2016-07-12] MEDS: Acetaminophen TAB* 325 MG PO PRN (01:33)
[2016-07-12 06:58] LABS: Hematocrit 39 % (35-47); Hemoglobin 12.8 g/dl (12.0-16.0); Mean Corpuscular HGB Conc 33 g/dl (31-36); Mean Corpuscular Hemoglobin 27 pg (27-31); Mean Corpuscular Volume 82 fL (80-97); Mean Platelet Volume 8 um3 (7.4-10.4); Red Blood Count 4.77 10^6/ul (4.0-5.4); Red Cell Distribution Width 16 % (10.5-15); White Blood Count 9.2 10^3/ul (3.5-10.8)
[2016-07-12 07:11] LABS: BUN/Creatinine Ratio 17.2 (8-20); Calcium 8.6 mg/dL (8.6-10.3); EGFR African American 127.4 (>60); Potassium 3.2 mmol/L (3.5-5.0)
[2016-07-12 07:20] VITALS: BP 159/63
[2016-07-12] MEDS ORDERED: Potassium Chlor TAB* 20 MEQ TAB.ER PO ONE (07:35)
[2016-07-12] MEDS ORDERED: Gabapentin CAP(*) 300 MG PO SCH (08:00)
[2016-07-12] MEDS: Magic Mouth Was-BEN/MAAL/LIDO SWISH SWAL SCH (08:10)
[2016-07-12] MEDS: Silver Sulfadiazine 1%* 20 GM TOPICAL SCH (08:10)
[2016-07-12] MEDS ORDERED: celeCOXIB CAP* 200 MG PO SCH (09:00)
[2016-07-12] MEDS ORDERED: amLODIPine TAB* 5 MG PO SCH (09:00)
[2016-07-12] MEDS ORDERED: Aspirin TAB* 325 MG PO SCH (09:00)
[2016-07-12] MEDS: oxyCODONE/Acetamin 5/325 MG* TAB PO PRN (09:52)
--- NOTE | 2016-07-13 03:32 | DS ---
DISCHARGE SUMMARY: DATE OF ADMISSION: 07/11/16 DATE OF DISCHARGE: 07/12/16 PRIMARY CARE PROVIDER: Dr. Gardner. PRIMARY DIAGNOSIS: Pharyngitis. SECONDARY DIAGNOSES: 1. Multiple sclerosis. 2. Hypertension. 3. Chronic pain. 4. History of breast cancer. 5. Sore throat. MEDICATIONS ON DISCHARGE: 1. Acetaminophen 1000 mg 3 times a day as needed for pain or fever. 2. Multivitamin 1 tablet daily. 3. Oxycodone 5/325 mg 1 to 2 tabs every 6 hours as needed for pain. 4. Celebrex 200 mg daily. 5. Amlodipine 10 mg daily. 6. Silvadene 1% one application twice daily to coccyx. 7. Melatonin 3 mg at bedtime as needed for insomnia. 8. Magic Mouthwash 5 mL swish and swallow 4 times a day as needed for sore throat. 9. Gabapentin 600 mg at 8 in the morning and noon and 900 mg at bedtime. 10. Flexeril 10 mg at bedtime as needed. 11. Aspirin 325 mg daily. PERTINENT MICROBIOLOGY: Rapid influenza and group A strep are negative. HISTORY OF PRESENT ILLNESS AND HOSPITAL COURSE: This is an 85-year-old female with past medical history as outlined in the history of present illness on the day of admission presented to the hospital with 1 week of increasing sore throat associated with increased fatigue and decreased p.o. intake. She was diagnosed with pharyngitis and admitted to the hospital because she could not take in p.o. food, developed dehydration in the setting of her severely sore throat. She received 1 dose of ceftriaxone in the emergency room. Antibiotics were not continued. She was started on Magic Mouthwash with Biotene for her xerostomia with great improvement. On the day of discharge, she still had a mild sore throat; however, was able to tolerate food and liquid. She received crystalloids overnight and was voiding every hour prior to her discharge. She felt ready to be discharged from the hospital. Of note, the patient's son spoke with nursing on the floor and indicates that the patient has been hospitalized every major holiday, thinks that it is an attempt for increased attention from the family. Additionally, son indicated that he has completed paperwork and the patient is to be [facility] to [facility] for increased level of care next week. There were no complications with the patient's hospital stay. At followup, please; 1. Evaluate for resolution of sore throat. 2. No other specific labs or vitals that need followup. Reasons to return to the hospital including but not limited to recurrent or worsening symptoms and inability to eat food or drink water, fevers, chills, night sweats, chest pain, shortness of breath, nausea, vomiting, lightheadedness , bleeding from any source, inability to obtain or tolerate medications were discussed with the patient. She acknowledged understanding. TIME SPENT: Greater than 45 minutes were spent on discharge of this patient, greater than half was spent [id number] with the patient. CC: Dr. Gardner* [id number]/[facility] #: [id number] [facility]
== END 2016-07-12 11:40 ==
LOC: ED 12:43 → MED 14:56
PROVIDERS: ADMIT Internal Medicine; ATTEND Internal Medicine
DX: J02.9 Acute pharyngitis, unspecified (principal); G35 Multiple sclerosis; I10 Essential (primary) hypertension; G89.29 Other chronic pain; I44.4 Left anterior fascicular block; Z85.3 Personal history of malignant neoplasm of breast; Z79.82 Long term (current) use of aspirin; Z79.899 Other long term (current) drug therapy; Z88.1 Allergy status to other antibiotic agents
CPT/HCPCS: 36415; 71010; 80048; 80053; 83605; 84484; 85025; 85610; 86140; 87040; 87502; 87651; 93005; 96372; 96374; 99283; A9270-GY; G0378; J0696; J1650

== ENCOUNTER 2016-09-18 03:53 | Inpatient (IN) | payer MEDICARE ==
[2016-09-18] MEDS ORDERED: NS 0.9% 1000 ML* 1,000 ML IV ONE (04:12)
[2016-09-18] MEDS ORDERED: Acetaminophen TAB* 325 MG PO ONE (04:12)
[2016-09-18 04:52] LABS: Hematocrit 36 % (35-47); Hemoglobin 11.8 g/dl (12.0-16.0); Mean Corpuscular HGB Conc 33 g/dl (31-36); Mean Corpuscular Hemoglobin 27 pg (27-31); Mean Corpuscular Volume 83 fL (80-97); Mean Platelet Volume 9 um3 (7.4-10.4); Red Blood Count 4.34 10^6/ul (4.0-5.4); Red Cell Distribution Width 17 % (10.5-15); White Blood Count 19.2 10^3/ul (3.5-10.8)
[2016-09-18 05:04] LABS: ALT 13 U/L (7-52); AST 23 U/L (13-39); Albumin 3.4 g/dL (3.2-5.2); Alkaline Phosphatase 79 U/L (34-104); Anion Gap 11 mmol/L (2-11); BUN/Creatinine Ratio 17.2 (8-20); Blood Urea Nitrogen 15 mg/dL (6-24); CO2 Carbon Dioxide 24 mmol/L (22-32); Calcium 8.8 mg/dL (8.6-10.3); Chloride 100 mmol/L (101-111); EGFR African American 79.6 (>60); EGFR Non-African American 61.9 (>60); Globulin 3.2 g/dL (2-4); Glucose 200 mg/dL (70-100); Magnesium 1.6 mg/dL (1.9-2.7); Potassium 3.7 mmol/L (3.5-5.0); Sodium 135 mmol/L (133-145); Total Protein 6.6 g/dL (6.4-8.9)
[2016-09-18 05:06] LABS: Troponin I 0.01 ng/mL (<0.04)
[2016-09-18 05:17] LABS: Urine Bacteria 1+ (Absent); Urine Bilirubin Negative (Negative); Urine Glucose Negative (Negative); Urine Nitrite Negative (Negative)
[2016-09-18 05:22] LABS: Alcohol < 10 mg/dL (<10)
--- NOTE | 2016-09-18 05:27 | ED ---
anita Jaimes Timothy, scribed for Reggie Ruelas MD on 09/18/16 at 0412 . HPI Febrile Illness - HPI Summary HPI Summary: Vicky Cyr is an 86 yo female presenting to [facility] with fever, AMS, decreased O2 sat since 0315 this morning. Triage notes Pt received percocet 5/ 325 x1 tab 0217 this morning. Per EMS, she had a glass of wine with dinner tonight. Per nurse, she has a significant Hx of UTI. Her MHx includes HTN, MS, sleep apnea, hysterectomy, arthritis. - History of Current Complaint Time Seen by Provider: 09/18/16 04:12 Hx Obtained From: Patient Onset/Duration: Started Hours Ago, Still Present Time of Onset: 03:15 Timing: Constant Temperature: 101.7 F Initial Severity: Moderate Current Severity: Moderate Pain Intensity: 0 Pain Scale Used: 0-10 Numeric Associated Signs and Symptoms: Altered Mental Status, Other: - decreased O2 sat - Additional Pertinent History Primary Care Physician: [id number] - Allergy/Home Medications Allergies/Adverse Reactions: Allergies Allergy/AdvReac Type Severity Reaction Status Date / Time Aminopyridine [From Ampyra] Allergy Unknown Verified 09/18/16 04:09 Reaction Details Baclofen Allergy Altered Verified 01/13/15 09:52 Mental Status Dalfampridine [From Ampyra] Allergy Unknown Verified 09/18/16 04:09 Reaction Details Iodixanol [From Visipaque] Allergy Rash Verified 09/11/14 15:03 Home Medications: Home Medications Acetaminophen TAB* 650 mg PO Q4HR PRN 09/18/16 [History Confirmed 09/18/16] Bisacodyl SUPP* 10 mg DC DAILY PRN 09/18/16 [History Confirmed 09/18/16] Cholecalciferol TAB* 50,000 units PO MONTHLY 09/18/16 [History Confirmed ] Miralax* 17 gm PO DAILY 09/18/16 [History Confirmed 09/18/16] Mucinex* 1 tab PO BID 09/18/16 [History Confirmed 09/18/16] Senna-S 8.6-50 mg 2 tab PO BEDTIME 09/18/16 [History Confirmed 09/18/16] oxyCODONE/Acetamin 5/325 MG* [Percocet 5/325 TAB*] 1 tab PO Q6H PRN MDD 8 tabs 09/18/16 [History Confirmed 09/18/16] PMH/Surg Hx/FS Hx/Imm Hx Endocrine/Hematology History: Denies: Hx Anticoagulant Therapy, Hx Diabetes, Hx Thyroid Disease Cardiovascular History: Reports: Hx Hypertension Respiratory History: Reports: Hx Sleep Apnea, Other Respiratory Problems/ Disorders - SLEEP APNEA Denies: Hx Asthma, Hx Chronic Obstructive Pulmonary Disease (COPD) GI History: Denies: Hx Ulcer Musculoskeletal History: Reports: Hx Arthritis, Hx Back Problems, Other Musculoskeletal History - MS Sensory History: Reports: Hx Cataracts, Hx Contacts or Glasses Denies: Hx Hearing Aid Opthamlomology History: Reports: Hx Cataracts, Hx Contacts or Glasses Neurological History: Reports: Other Neuro Impairments/Disorders - Multiple Sclerosis - Cancer History Cancer Type, Location and Year: Breast Cancer 1999, 2009 Lumpectomy. Basal Cell Carcinoma - working on removing them - Surgical History Surgery Procedure, Year, and Place: Lumpectomies, Hysterectomy, Tonsilectomy 1936, Appendectomy 1947, Left Wrist surgery 1971, Hip Replacement Right 1992, . Infectious Disease History: Denies: Hx Hepatitis, Hx Human Immunodeficiency Virus (HIV), Traveled Outside the [place] in Last 30 Days - Family History Known Family History: Negative: Cardiac Disease - Social History Alcohol Use: None Alcohol Amount: ONE GLASS OF WINE WITH LUNCH Hx Substance Use: No Substance Use Type: Reports: None Hx Tobacco Use: No Smoking Status (MU): Never Smoked Tobacco Review of Systems Positive: Fever Eyes: Negative ENT: Negative Cardiovascular: Negative Respiratory: Other - decreased O2 sat Gastrointestinal: Negative Genitourinary: Negative Musculoskeletal: Negative Skin: Negative Neurological: Other - AMS Psychological: Normal All Other Systems Reviewed And Are Negative: Yes Physical Exam Triage Information Reviewed: Yes Vital Signs On Initial Exam: Initial Vitals Temp Pulse Resp BP 101.7 F 96 16 134/67 09/18/16 03:53 09/18/16 03:53 09/18/16 03:53 09/18/16 03:53 Vital Signs Reviewed: Yes Completion Of Physical Exam Limited Due To: Dementia Appearance: Positive: No Pain Distress, Ill-Appearing Skin: Positive: Warm, Dry Head/Face: Positive: Normal Head/Face Inspection ENT: Positive: Hearing grossly normal Neck: Positive: Supple Respiratory/Lung Sounds: Positive: Clear to Auscultation, Breath Sounds Present Cardiovascular: Positive: RRR Abdomen Description: Positive: Nontender, Soft Musculoskeletal: Positive: Strength/ROM Intact Diagnostics - Vital Signs Vital Signs Temp Pulse Resp BP 09/18/16 03:53 101.7 F 96 16 134/67 - Laboratory Lab Results: Lab Results 09/18/16 09/18/16 09/18/16 Range/Units 04:05 04:05 04:05 WBC 19.2 H (3.5-10.8) 10^3/ul RBC 4.34 (4.0-5.4) 10^6/ul Hgb 11.8 L (12.0-16.0) g/dl Hct 36 (35-47) % MCV 83 (80-97) fL MCH 27 (27-31) pg MCHC 33 (31-36) g/dl RDW 17 H (10.5-15) % Plt Count 191 (150-450) 10^3/ul MPV 9 (7.4-10.4) um3 Neut % (Auto) 87.1 H (38-83) % Lymph % (Auto) 5.7 L (25-47) % [place] % (Auto) 7.0 (1-9) % Eos % (Auto) 0 (0-6) % Baso % (Auto) 0.2 (0-2) % Absolute Neuts (auto) 16.7 H (1.5-7.7) 10^3/ul Absolute Lymphs (auto) 1.1 (1.0-4.8) 10^3/ul Absolute Monos (auto) 1.3 H (0-0.8) 10^3/ul Absolute Eos (auto) 0 (0-0.6) 10^3/ul Absolute Basos (auto) 0 (0-0.2) 10^3/ul Absolute Nucleated RBC 0 10^3/ul Nucleated RBC % 0 Sodium 135 (133-145) mmol/L Potassium 3.7 (3.5-5.0) mmol/L Chloride 100 L (101-111) mmol/L Carbon Dioxide 24 (22-32) mmol/L Anion Gap 11 (2-11) mmol/L BUN 15 (6-24) mg/dL Creatinine 0.87 (0.51-0.95) mg/dL Est GFR ( Amer) 79.6 (>60) Est GFR (Non-Af Amer) 61.9 (>60) BUN/Creatinine Ratio 17.2 (8-20) Glucose 200 H (70-100) mg/dL Lactic Acid 3.8 H* (0.5-2.0) mmol/L Calcium 8.8 (8.6-10.3) mg/dL Magnesium 1.6 L (1.9-2.7) mg/dL Total Bilirubin 0.50 (0.2-1.0) mg/dL AST 23 (13-39) U/L ALT 13 (7-52) U/L Alkaline Phosphatase 79 (34-104) U/L Troponin I 0.01 (<0.04) ng/mL Total Protein 6.6 (6.4-8.9) g/dL Albumin 3.4 (3.2-5.2) g/dL Globulin 3.2 (2-4) g/dL Albumin/Globulin Ratio 1.1 (1-3) Urine Color Urine Appearance Urine pH (5-9) Ur Specific [place] (1.010-1.030) Urine Protein (Negative) Urine Ketones (Negative) Urine Blood (Negative) Urine Nitrate (Negative) Urine Bilirubin (Negative) Urine Urobilinogen (Negative) Ur Leukocyte Esterase (Negative) Urine WBC (Auto) (Absent) Urine RBC (Auto) (Absent) Ur Squamous Epith Cells (Absent) Urine Bacteria (Absent) Hyaline Casts (Absent) Urine Glucose (Negative) Serum Alcohol < 10 (<10) mg/dL 09/18/16 Range/Units 05:00 WBC (3.5-10.8) 10^3/ul RBC (4.0-5.4) 10^6/ul Hgb (12.0-16.0) g/dl Hct (35-47) % MCV (80-97) fL MCH (27-31) pg MCHC (31-36) g/dl RDW (10.5-15) % Plt Count (150-450) 10^3/ul MPV (7.4-10.4) um3 Neut % (Auto) (38-83) % Lymph % (Auto) (25-47) % [place] % (Auto) (1-9) % Eos % (Auto) (0-6) % Baso % (Auto) (0-2) % Absolute Neuts (auto) (1.5-7.7) 10^3/ul Absolute Lymphs (auto) (1.0-4.8) 10^3/ul Absolute Monos (auto) (0-0.8) 10^3/ul Absolute Eos (auto) (0-0.6) 10^3/ul Absolute Basos (auto) (0-0.2) 10^3/ul Absolute Nucleated RBC 10^3/ul Nucleated RBC % Sodium (133-145) mmol/L Potassium (3.5-5.0) mmol/L Chloride (101-111) mmol/L Carbon Dioxide (22-32) mmol/L Anion Gap (2-11) mmol/L BUN (6-24) mg/dL Creatinine (0.51-0.95) mg/dL Est GFR ( Amer) (>60) Est GFR (Non-Af Amer) (>60) BUN/Creatinine Ratio (8-20) Glucose (70-100) mg/dL Lactic Acid (0.5-2.0) mmol/L Calcium (8.6-10.3) mg/dL Magnesium (1.9-2.7) mg/dL Total Bilirubin (0.2-1.0) mg/dL AST (13-39) U/L ALT (7-52) U/L Alkaline Phosphatase (34-104) U/L Troponin I (<0.04) ng/mL Total Protein (6.4-8.9) g/dL Albumin (3.2-5.2) g/dL Globulin (2-4) g/dL Albumin/Globulin Ratio (1-3) Urine Color Yellow Urine Appearance Cloudy Urine pH 5.0 (5-9) Ur Specific [place] 1.012 (1.010-1.030) Urine Protein 2+(100 mg/dl) H (Negative) Urine Ketones Negative (Negative) Urine Blood Negative (Negative) Urine Nitrate Negative (Negative) Urine Bilirubin Negative (Negative) Urine Urobilinogen Negative (Negative) Ur Leukocyte Esterase Trace H (Negative) Urine WBC (Auto) 1+(6-10/hpf) H (Absent) Urine RBC (Auto) 2+(6-10/hpf) H (Absent) Ur Squamous Epith Cells Present H (Absent) Urine Bacteria 1+ H (Absent) Hyaline Casts Present H (Absent) Urine Glucose Negative (Negative) Serum Alcohol (<10) mg/dL Result Diagrams: 09/18/16 04:05 09/18/16 04:05 Lab Statement: Any lab studies that have been ordered have been reviewed, and results considered in the medical decision making process. - Radiology CXR Xray Interpretation: No Acute Changes - No active cardiopulmonary disease Radiology Interpretation Completed By: ED Physician - EKG 0426 Cardiac Rate: NL - 92 BPM EKG Interpretation: NSR @ 92 BPM, normal EKG. Course/Dx - Course Assessment/Plan: Vicky Cyr is an 86 yo female presenting to [facility] with fever of 101.7, AMS, and decreased O2 sat since 0315 this morning. Pt medication list reviewed this visit. In the ED course she received ASA and IV fluids. Her EKG suggests NSR. Her CXR suggests no active cardiopulmonary disease. After clinical examination and review of her lab and imaging studies, as well as discussion with Dr. Wilkinson, she will be admitted to [facility] for fever. - Diagnoses Provider Diagnoses: Fever - Provider Notifications Discussed Care Of Patient With: Julian Wilkinson - Discussed Pt condition, accepts Pt for admission Time Discussed With Above Provider: 05:31 Instructed by Provider To: Admit As Inpatient Discharge - Discharge Plan Condition: Fair Disposition: ADMITTED TO [facility] Referrals: Janusz Gardner MD [Primary Care Provider] - The documentation as recorded by the anita mirza Timothy accurately reflects the service I personally performed and the decisions made by , Reggie Ruelas MD.
[2016-09-18] MEDS ORDERED: Magnesium Sulfate 2 GM IV* 2 GM/50 ML BAG IVPB ONE (05:33)
[2016-09-18] MEDS ORDERED: Acetaminophen TAB* 325 MG PO PRN (05:35)
[2016-09-18] MEDS ORDERED: Ondansetron INJ* 2 MG/ML VIAL IV PRN (05:37)
[2016-09-18] MEDS ORDERED: Melatonin (NF) 3 MG TAB PO PRN (05:37)
[2016-09-18] MEDS ORDERED: NS 0.9% 1000 ML* 1,000 ML IV SCH (05:45)
[2016-09-18] MEDS ORDERED: CMCS - Melatonin (NF) 3 MG TAB PO PRN (05:48)
--- NOTE | 2016-09-18 05:51 | HP ---
H&P (Free Text) History and Physical: PCP: Camron Gardner MD Date/Time of Evaluation: 09/18/2016 0530 CC: fever HPI: Mrs Cyr is an 86YO female resident of [place] who is confused and unable to contribute to this history beyond current status. When asked where she is replied, "[facility]". Therefore, much of this history was obtained via ED staff and the available medical record. She was brought to [facility] ED via EMS for fever and confusion. Of note she was given a 5/325mg Percocet ~ 0200. She currently denies pain, chest pain, abdominal pain, headache, F/C, N/V , F/C, or other issues. PMedHx multiple sclerosis HTN recurrent UTIs chronic pain HX breast CA Ambulatory Orders Nursing to reconcile. Multiple Vitamins W/ Minerals [Centrum] 1 tab PO DAILY 03/06/16 Aspirin TAB* [Aspirin 325 MG TAB*] 325 mg PO DAILY tab 07/12/16 Cyclobenzaprine TAB* [Flexeril 10 MG TAB*] 10 mg PO BEDTIME PRN #0 tab 07/12/16 Gabapentin CAP(*) [Neurontin 300 CAP(*)] 600 mg PO 0800,1200 cap 07/12/16 Gabapentin CAP(*) [Neurontin 300 CAP(*)] 900 mg PO BEDTIME cap 07/12/16 Melatonin (NF) 3 mg PO BEDTIME PRN #0 tab 07/12/16 amLODIPine TAB* [Norvasc 5 mg TAB*] 10 mg PO DAILY tab 07/12/16 celeCOXIB CAP* [Celebrex CAP*] 200 mg PO DAILY cap 07/12/16 Acetaminophen TAB* 650 mg PO Q4HR PRN 09/18/16 Bisacodyl SUPP* 10 mg UT DAILY PRN 09/18/16 Cholecalciferol TAB* 50,000 units PO MONTHLY 09/18/16 Miralax* 17 gm PO DAILY 09/18/16 Mucinex* 1 tab PO BID 09/18/16 Senna-S 8.6-50 mg 2 tab PO BEDTIME 09/18/16 oxyCODONE/Acetamin 5/325 MG* [Percocet 5/325 TAB*] 1 tab PO Q6H PRN MDD 8 tabs 09/18/16 Allergies Aminopyridine [From Ampyra] Allergy (Verified 09/18/16 04:09) Unknown Reaction Details Baclofen Allergy (Verified 01/13/15 09:52) Altered Mental Status Dalfampridine [From Ampyra] Allergy (Verified 09/18/16 04:09) Unknown Reaction Details Iodixanol [From Visipaque] Allergy (Verified 09/11/14 15:03) Rash PSurgHx hysterectomy L hip pinning SocHx: no tobacco, alcohol, or recreational drug HX; , resides at [place]; full code status, son Jim is her HCP FamHx: unobtainable ROS: as above, otherwise reviewed and all were negative Constitutional: NAD, normally developed, well-nourished elderly white female vitals: Vital Signs Temp 38.7 C 09/18/16 04:00 Pulse 87 09/18/16 05:00 Resp 16 09/18/16 04:00 BP 127/57 09/18/16 05:00 Pulse Ox 95 09/18/16 05:00 Intake & Output 09/17/16 09/17/16 09/18/16 11:59 23:59 11:59 Weight 63.503 kg HEENM: atraumatic; sclera/conjunctiva: non-icteric/clear; hearing: clinically moderately decreased; oropharynx: clear, mucosa moist Neck: soft tissue: non-tender; thyroid: normal Pulmonary: clear to auscultation bilaterally, good aeration, no accessory muscle use CV: RR/RR, normal S1S2, no carotid bruit, no jugular venous distention, 2+ B DP/ PT, no edema Abdominal: soft, non-distended, non-tender, no rebound/guarding/rigidity, normoactive bowel sounds, no hepatosplenomegaly or masses, no costovertebral angle tenderness Musculoskeletal: general: grossly intact, unable to squeeze R hand ? chronicity Integumental: flushed face Psychiatric orientation: AA & oriented to person only affect: somnolent, arouse with voice mood: cooperative eye contact: poor content: unreliable responses: mildly slowed insight: poor Testing: Lab Results 09/18/16 09/18/16 09/18/16 Range/Units 04:05 04:05 04:05 WBC 19.2 H (3.5-10.8) 10^3/ul RBC 4.34 (4.0-5.4) 10^6/ul Hgb 11.8 L (12.0-16.0) g/dl Hct 36 (35-47) % MCV 83 (80-97) fL MCH 27 (27-31) pg MCHC 33 (31-36) g/dl RDW 17 H (10.5-15) % Plt Count 191 (150-450) 10^3/ul MPV 9 (7.4-10.4) um3 Neut % (Auto) 87.1 H (38-83) % Lymph % (Auto) 5.7 L (25-47) % [place] % (Auto) 7.0 (1-9) % Eos % (Auto) 0 (0-6) % Baso % (Auto) 0.2 (0-2) % Absolute Neuts (auto) 16.7 H (1.5-7.7) 10^3/ul Absolute Lymphs (auto) 1.1 (1.0-4.8) 10^3/ul Absolute Monos (auto) 1.3 H (0-0.8) 10^3/ul Absolute Eos (auto) 0 (0-0.6) 10^3/ul Absolute Basos (auto) 0 (0-0.2) 10^3/ul Absolute Nucleated RBC 0 10^3/ul Nucleated RBC % 0 Sodium 135 (133-145) mmol/L Potassium 3.7 (3.5-5.0) mmol/L Chloride 100 L (101-111) mmol/L Carbon Dioxide 24 (22-32) mmol/L Anion Gap 11 (2-11) mmol/L BUN 15 (6-24) mg/dL Creatinine 0.87 (0.51-0.95) mg/dL Est GFR ( Amer) 79.6 (>60) Est GFR (Non-Af Amer) 61.9 (>60) BUN/Creatinine Ratio 17.2 (8-20) Glucose 200 H (70-100) mg/dL Lactic Acid 3.8 H* (0.5-2.0) mmol/L Calcium 8.8 (8.6-10.3) mg/dL Magnesium 1.6 L (1.9-2.7) mg/dL Total Bilirubin 0.50 (0.2-1.0) mg/dL AST 23 (13-39) U/L ALT 13 (7-52) U/L Alkaline Phosphatase 79 (34-104) U/L Troponin I 0.01 (<0.04) ng/mL Total Protein 6.6 (6.4-8.9) g/dL Albumin 3.4 (3.2-5.2) g/dL Globulin 3.2 (2-4) g/dL Albumin/Globulin Ratio 1.1 (1-3) Urine Color Urine Appearance Urine pH (5-9) Ur Specific [place] (1.010-1.030) Urine Protein (Negative) Urine Ketones (Negative) Urine Blood (Negative) Urine Nitrate (Negative) Urine Bilirubin (Negative) Urine Urobilinogen (Negative) Ur Leukocyte Esterase (Negative) Urine WBC (Auto) (Absent) Urine RBC (Auto) (Absent) Ur Squamous Epith Cells (Absent) Urine Bacteria (Absent) Hyaline Casts (Absent) Urine Glucose (Negative) Serum Alcohol < 10 (<10) mg/dL 09/18/16 Range/Units 05:00 WBC (3.5-10.8) 10^3/ul RBC (4.0-5.4) 10^6/ul Hgb (12.0-16.0) g/dl Hct (35-47) % MCV (80-97) fL MCH (27-31) pg MCHC (31-36) g/dl RDW (10.5-15) % Plt Count (150-450) 10^3/ul MPV (7.4-10.4) um3 Neut % (Auto) (38-83) % Lymph % (Auto) (25-47) % [place] % (Auto) (1-9) % Eos % (Auto) (0-6) % Baso % (Auto) (0-2) % Absolute Neuts (auto) (1.5-7.7) 10^3/ul Absolute Lymphs (auto) (1.0-4.8) 10^3/ul Absolute Monos (auto) (0-0.8) 10^3/ul Absolute Eos (auto) (0-0.6) 10^3/ul Absolute Basos (auto) (0-0.2) 10^3/ul Absolute Nucleated RBC 10^3/ul Nucleated RBC % Sodium (133-145) mmol/L Potassium (3.5-5.0) mmol/L Chloride (101-111) mmol/L Carbon Dioxide (22-32) mmol/L Anion Gap (2-11) mmol/L BUN (6-24) mg/dL Creatinine (0.51-0.95) mg/dL Est GFR ( Amer) (>60) Est GFR (Non-Af Amer) (>60) BUN/Creatinine Ratio (8-20) Glucose (70-100) mg/dL Lactic Acid (0.5-2.0) mmol/L Calcium (8.6-10.3) mg/dL Magnesium (1.9-2.7) mg/dL Total Bilirubin (0.2-1.0) mg/dL AST (13-39) U/L ALT (7-52) U/L Alkaline Phosphatase (34-104) U/L Troponin I (<0.04) ng/mL Total Protein (6.4-8.9) g/dL Albumin (3.2-5.2) g/dL Globulin (2-4) g/dL Albumin/Globulin Ratio (1-3) Urine Color Yellow Urine Appearance Cloudy Urine pH 5.0 (5-9) Ur Specific [place] 1.012 (1.010-1.030) Urine Protein 2+(100 mg/dl) H (Negative) Urine Ketones Negative (Negative) Urine Blood Negative (Negative) Urine Nitrate Negative (Negative) Urine Bilirubin Negative (Negative) Urine Urobilinogen Negative (Negative) Ur Leukocyte Esterase Trace H (Negative) Urine WBC (Auto) 1+(6-10/hpf) H (Absent) Urine RBC (Auto) 2+(6-10/hpf) H (Absent) Ur Squamous Epith Cells Present H (Absent) Urine Bacteria 1+ H (Absent) Hyaline Casts Present H (Absent) Urine Glucose Negative (Negative) Serum Alcohol (<10) mg/dL ECG, personally reviewed: 1st degree AV rate 92, diffuse non-specific ST-T changes CXR, personally reviewed: retro-cardiac infiltrate best seen on lateral view Impression: 86F presenting with fever, LLL pneumonia, & UTI DIAGNOSIS & PLAN Primary LLL pneumonia : IV levofloxacin : IVFs : supplemental oxygen : urine Legionella & S pneumo antigens : blood & sputum CXs : supplemental oxygen : supportive care UTI : IV levofloxacin : IVFs : trend leukocytosis : blood & urine CXs : supportive care Secondary multiple sclerosis : no acute issues HTN : review meds once reconciled HX breast CA : no acute issues Admission Rational: inpatient for IVFs & IV ABX to treat LLL pneumonia & UTI in patient at high risk of mortality DVTp: heparin SQ & SCDs Code Status: full cardiac, DNI code status HCP: sonJim
[2016-09-18] MEDS ORDERED: Levofloxacin 500 MG IVPREMIX(* 500 MG/100 ML BAG IVPB ONE (06:00)
[2016-09-18] MEDS: Gabapentin CAP(*) 300 MG PO SCH ×3 (07:58→20:19)
[2016-09-18] MEDS: Omeprazole CAP* 20 MG PO SCH (07:58)
[2016-09-18] MEDS: Docusate CAP* 100 MG PO SCH ×2 (07:58→20:19)
[2016-09-18] MEDS: Polyethylene Glycol 3350* 17 GM PACKET PO SCH (07:59)
[2016-09-18] MEDS: amLODIPine TAB* 5 MG PO SCH ×2 (07:59→11:08)
[2016-09-18] MEDS: celeCOXIB CAP* 200 MG PO SCH ×2 (07:59→11:10)
[2016-09-18] MEDS: Aspirin TAB* 325 MG PO SCH ×2 (07:59→11:10)
--- NOTE | 2016-09-18 08:05 | RAD ---
INDICATION: Fever. COMPARISON: Comparison is made with a prior chest x-ray study from July 11, 2016. TECHNIQUE: Dual-energy PA and lateral views of the chest were obtained. FINDINGS: The heart is within normal limits in size. Mediastinal and hilar contours appear within normal limits. The lungs are underinflated. There is a patchy infiltrate present in the left lower lobe. No pleural effusion is seen. IMPRESSION: LEFT LOWER LOBE INFILTRATE MOST CONSISTENT WITH PNEUMONIA.
[2016-09-18 09:18] LABS: BUN/Creatinine Ratio 22.4 (8-20); Calcium 8.5 mg/dL (8.6-10.3); EGFR Non-African American 72.3 (>60); Potassium 3.6 mmol/L (3.5-5.0)
[2016-09-18] MEDS ORDERED: oxyCODONE/Acetamin 5/325 MG* TAB PO ONE (12:05)
--- NOTE | 2016-09-18 12:59 | PN ---
Subjective Date of Service: 09/18/16 Interval History: Patient seen and examined at bedside. She is very sleepy but does arouse to verbal and tactile stimuli. Patient is able to state "No, nothing hurts" when asked if she is having pain or discomfort. Does not respond to other questions. Daughter in room. She states that patient resides at [facility] and had to move from [place] previously due to inability to provide self care. She states that pt is contracted and "pretty much immobile." She confirms the patient is a DNR. She also states that the sleeping and confusion is "pretty classic for her mother, with her MS and when she gets UTIs." Family History: Unchanged from Admission Social History: Unchanged from Admission Past Medical History: Unchanged from Admission Objective Active Medications: Acetaminophen (Tylenol Tab*) 650 mg PO Q6H PRN PRN Reason: FEVER/PAIN Last Admin: 09/18/16 11:09 Dose: 650 mg Amlodipine Besylate (Norvasc Tab*) 10 mg PO DAILY [facility] Last Admin: 09/18/16 11:08 Dose: 10 mg Aspirin (Aspirin Tab*) 325 mg PO DAILY [facility] Last Admin: 09/18/16 11:10 Dose: 325 mg Celecoxib (Celebrex Cap*) 200 mg PO DAILY [facility] Last Admin: 09/18/16 11:10 Dose: 200 mg Cyclobenzaprine HCl (Flexeril Tab*) 10 mg PO BEDTIME PRN PRN Reason: PAIN Docusate Sodium (Colace Cap*) 200 mg PO BID [facility] Last Admin: 09/18/16 07:58 Dose: Not Given Gabapentin (Neurontin Cap(*)) 600 mg PO 0800,1200 [facility] Last Admin: 09/18/16 10:57 Dose: 600 mg Gabapentin (Neurontin Cap(*)) 900 mg PO BEDTIME [facility] Heparin Sodium (Porcine) (Heparin Vial(*)) 5,000 units SUBCUT Q8HR [facility] Levofloxacin/Dextrose (Levaquin 250 Mg Ivpremx(*)) 250 mg in 50 mls @ 50 mls/ hr IVPB Q24H [facility] Sodium Chloride (Ns 0.9% 1000 Ml*) 1,000 mls @ 75 mls/hr IV PER RATE [facility] Melatonin (Melatonin (Nf)) 3 mg PO BEDTIME PRN; Protocol PRN Reason: INSOMNIA Omeprazole (Prilosec Cap*) 20 mg PO 0730 [facility] Last Admin: 09/18/16 07:58 Dose: Not Given Ondansetron HCl (Zofran Inj*) 4 mg IV Q6H PRN PRN Reason: NAUSEA Polyethylene Glycol/Electrolytes (Miralax*) 17 gm PO DAILY [facility] Last Admin: 09/18/16 07:59 Dose: Not Given Vital Signs 09/18/16 09/18/16 09/18/16 05:55 06:40 06:49 Temperature 99.6 F 99.8 F 99.8 F Pulse Rate 81 71 71 Respiratory 16 18 18 Rate Blood Pressure 120/55 110/43 110/43 (mmHg) O2 Sat by Pulse 94 92 92 Oximetry 09/18/16 09/18/16 09/18/16 09:44 10:57 12:20 Temperature 97.6 F Pulse Rate 67 Respiratory 16 16 16 Rate Blood Pressure 124/50 (mmHg) O2 Sat by Pulse 97 Oximetry 09/18/16 12:24 Temperature Pulse Rate Respiratory 16 Rate Blood Pressure (mmHg) O2 Sat by Pulse Oximetry Oxygen Devices in Use Now: Nasal Cannula - 2Lnc Appearance: Elderly female, very drowsy but arousable, NAD Eyes: No Scleral Icterus Ears/Nose/Mouth/Throat: Mucous Membranes Moist Neck: NL Appearance and Movements; NL JVP Respiratory: Symmetrical Chest Expansion and Respiratory Effort, Clear to Auscultation Cardiovascular: NL Sounds; No Murmurs; No JVD, RRR Abdominal: NL Sounds; No Tenderness; No Distention Extremities: - - right arm/hand contracture, 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 , bilateral foot drop Neurological: - - Drowsy but arousable, follows commands with repeated prompts Lines/Tubes/Other Access: Clean, Dry and Intact Peripheral IV Result Diagrams: 09/18/16 04:05 09/18/16 08:52 Additional Lab and Data: Lab Results 09/18/16 09/18/16 09/18/16 Range/Units 04:05 04:05 04:05 WBC 19.2 H (3.5-10.8) 10^3/ul RBC 4.34 (4.0-5.4) 10^6/ul Hgb 11.8 L (12.0-16.0) g/dl Hct 36 (35-47) % MCV 83 (80-97) fL MCH 27 (27-31) pg MCHC 33 (31-36) g/dl RDW 17 H (10.5-15) % Plt Count 191 (150-450) 10^3/ul MPV 9 (7.4-10.4) um3 Neut % (Auto) 87.1 H (38-83) % Lymph % (Auto) 5.7 L (25-47) % [place] % (Auto) 7.0 (1-9) % Eos % (Auto) 0 (0-6) % Baso % (Auto) 0.2 (0-2) % Absolute Neuts (auto) 16.7 H (1.5-7.7) 10^3/ul Absolute Lymphs (auto) 1.1 (1.0-4.8) 10^3/ul Absolute Monos (auto) 1.3 H (0-0.8) 10^3/ul Absolute Eos (auto) 0 (0-0.6) 10^3/ul Absolute Basos (auto) 0 (0-0.2) 10^3/ul Absolute Nucleated RBC 0 10^3/ul Nucleated RBC % 0 Sodium 135 (133-145) mmol/L Potassium 3.7 (3.5-5.0) mmol/L Chloride 100 L (101-111) mmol/L Carbon Dioxide 24 (22-32) mmol/L Anion Gap 11 (2-11) mmol/L BUN 15 (6-24) mg/dL Creatinine 0.87 (0.51-0.95) mg/dL Est GFR ( Amer) 79.6 (>60) Est GFR (Non-Af Amer) 61.9 (>60) BUN/Creatinine Ratio 17.2 (8-20) Glucose 200 H (70-100) mg/dL Lactic Acid 3.8 H* (0.5-2.0) mmol/L Calcium 8.8 (8.6-10.3) mg/dL Magnesium 1.6 L (1.9-2.7) mg/dL Total Bilirubin 0.50 (0.2-1.0) mg/dL AST 23 (13-39) U/L ALT 13 (7-52) U/L Alkaline Phosphatase 79 (34-104) U/L Troponin I 0.01 (<0.04) ng/mL Total Protein 6.6 (6.4-8.9) g/dL Albumin 3.4 (3.2-5.2) g/dL Globulin 3.2 (2-4) g/dL Albumin/Globulin Ratio 1.1 (1-3) Urine Color Urine Appearance Urine pH (5-9) Ur Specific [place] (1.010-1.030) Urine Protein (Negative) Urine Ketones (Negative) Urine Blood (Negative) Urine Nitrate (Negative) Urine Bilirubin (Negative) Urine Urobilinogen (Negative) Ur Leukocyte Esterase (Negative) Urine WBC (Auto) (Absent) Urine RBC (Auto) (Absent) Ur Squamous Epith Cells (Absent) Urine Bacteria (Absent) Hyaline Casts (Absent) Urine Glucose (Negative) Serum Alcohol < 10 (<10) mg/dL 09/18/16 Range/Units 05:00 WBC (3.5-10.8) 10^3/ul RBC (4.0-5.4) 10^6/ul Hgb (12.0-16.0) g/dl Hct (35-47) % MCV (80-97) fL MCH (27-31) pg MCHC (31-36) g/dl RDW (10.5-15) % Plt Count (150-450) 10^3/ul MPV (7.4-10.4) um3 Neut % (Auto) (38-83) % Lymph % (Auto) (25-47) % [place] % (Auto) (1-9) % Eos % (Auto) (0-6) % Baso % (Auto) (0-2) % Absolute Neuts (auto) (1.5-7.7) 10^3/ul Absolute Lymphs (auto) (1.0-4.8) 10^3/ul Absolute Monos (auto) (0-0.8) 10^3/ul Absolute Eos (auto) (0-0.6) 10^3/ul Absolute Basos (auto) (0-0.2) 10^3/ul Absolute Nucleated RBC 10^3/ul Nucleated RBC % Sodium (133-145) mmol/L Potassium (3.5-5.0) mmol/L Chloride (101-111) mmol/L Carbon Dioxide (22-32) mmol/L Anion Gap (2-11) mmol/L BUN (6-24) mg/dL Creatinine (0.51-0.95) mg/dL Est GFR ( Amer) (>60) Est GFR (Non-Af Amer) (>60) BUN/Creatinine Ratio (8-20) Glucose (70-100) mg/dL Lactic Acid (0.5-2.0) mmol/L Calcium (8.6-10.3) mg/dL Magnesium (1.9-2.7) mg/dL Total Bilirubin (0.2-1.0) mg/dL AST (13-39) U/L ALT (7-52) U/L Alkaline Phosphatase (34-104) U/L Troponin I (<0.04) ng/mL Total Protein (6.4-8.9) g/dL Albumin (3.2-5.2) g/dL Globulin (2-4) g/dL Albumin/Globulin Ratio (1-3) Urine Color Yellow Urine Appearance Cloudy Urine pH 5.0 (5-9) Ur Specific [place] 1.012 (1.010-1.030) Urine Protein 2+(100 mg/dl) H (Negative) Urine Ketones Negative (Negative) Urine Blood Negative (Negative) Urine Nitrate Negative (Negative) Urine Bilirubin Negative (Negative) Urine Urobilinogen Negative (Negative) Ur Leukocyte Esterase Trace H (Negative) Urine WBC (Auto) 1+(6-10/hpf) H (Absent) Urine RBC (Auto) 2+(6-10/hpf) H (Absent) Ur Squamous Epith Cells Present H (Absent) Urine Bacteria 1+ H (Absent) Hyaline Casts Present H (Absent) Urine Glucose Negative (Negative) Serum Alcohol (<10) mg/dL Diagnostic Imaging: ECG, personally reviewed: 1st degree AV rate 92, diffuse non-specific ST-T changes CXR, personally reviewed: retro-cardiac infiltrate best seen on lateral view Assess/Plan/Problems-Billing Assessment: Ms. Cyr is an 86 yo female with a PMH of MS, HTN, recurrent UTIs, chronic pain, and BrCA who was sent by [facility] with concern for fever and confusion and was found to have LLL pneumonia and UTI. - Patient Problems (1) Sepsis Comment: Combination of pneumonia and urinary source Patient meets sepsis criteria with a qSOFA score of 1 for AMS. Patient meets sepsis criteria by SIRS criteria with elevated lactate, leukocytosis, and fever. Continue IV levofloxacin and IVF. Blood cultures pending. (2) LLL pneumonia Code(s): J18.1 - LOBAR PNEUMONIA, UNSPECIFIED ORGANISM Comment: Not in respiratory distress Continue IV levofloxacin, IVF Legionella and S. pneumo antigens pending Blood cx sent, pending Continue supplemental O2 prn Supportive care (3) Lactic acidosis Code(s): E87.2 - ACIDOSIS Comment: Suspect secondary to acute infection Now resolved (4) UTI (urinary tract infection) Comment: Hx of recurrent UTIs Continue IV levofloxacin UA showed 1+ bacteria and trace leukocyte eserase Ace catheter placed here in ED with concern for retention Await urine cx (5) Chronic pain Code(s): G89.29 - OTHER CHRONIC PAIN Comment: Continue gabapentin and prn oxycodone with parameters to hold for sedation. (6) Diabetes Code(s): E11.9 - TYPE 2 DIABETES MELLITUS WITHOUT COMPLICATIONS Comment: Check daily FSBG while in hospital Patient and family have previously indicated limited interventions (also on MOLST) and do not wish to start treatment for hyperglycemia. (7) HTN (hypertension) Code(s): I10 - ESSENTIAL (PRIMARY) HYPERTENSION Comment: Normotensive Continue amlodipine. (8) Multiple sclerosis Code(s): G35 - MULTIPLE SCLEROSIS Comment: Continue gabapentin for pain and prn oxycodone. She is wheelchair bound. (9) DVT prophylaxis Comment: SQ heparin (10) DNR (do not resuscitate) Comment: MOLST updated 09/18 Patient is DNR/DNI Status and Disposition: Inpatient admission. Anticipate LOS >2 days.
[2016-09-18] MEDS: oxyCODONE/Acetamin 5/325 MG* TAB PO PRN (18:18)
[2016-09-18] MEDS ORDERED: Cyclobenzaprine TAB* 10 MG PO PRN (21:00)
[2016-09-19] MEDS: Heparin VIAL(*) 5000 UNITS/ML VIAL (FIVE THOUSAND) SUBCUT SCH ×3 (05:46→22:30)
[2016-09-19] MEDS: Levofloxacin 250 MG IVPREMX(*) 250 MG/50 ML BAG IVPB SCH (05:46)
[2016-09-19] MEDS: oxyCODONE/Acetamin 5/325 MG* TAB PO PRN ×2 (07:09→14:34)
[2016-09-19] MEDS: Omeprazole CAP* 20 MG PO SCH (07:10)
[2016-09-19 07:23] LABS: BUN/Creatinine Ratio 17.3 (8-20); Calcium 8.5 mg/dL (8.6-10.3); EGFR African American 144.1 (>60); EGFR Non-African American 112.1 (>60); Potassium 3.5 mmol/L (3.5-5.0)
[2016-09-19 07:42] LABS: Hematocrit 35 % (35-47); Hemoglobin 11.3 g/dl (12.0-16.0); Mean Corpuscular HGB Conc 33 g/dl (31-36); Mean Corpuscular Hemoglobin 27 pg (27-31); Mean Corpuscular Volume 84 fL (80-97); Mean Platelet Volume 9 um3 (7.4-10.4); Red Blood Count 4.12 10^6/ul (4.0-5.4); Red Cell Distribution Width 17 % (10.5-15); White Blood Count 17.7 10^3/ul (3.5-10.8)
[2016-09-19] MEDS: Gabapentin CAP(*) 300 MG PO SCH ×3 (08:00→20:10)
[2016-09-19] MEDS: Aspirin TAB* 325 MG PO SCH (08:00)
[2016-09-19] MEDS: Docusate CAP* 100 MG PO SCH ×2 (08:00→20:12)
[2016-09-19] MEDS: amLODIPine TAB* 5 MG PO SCH (08:00)
[2016-09-19] MEDS: celeCOXIB CAP* 200 MG PO SCH (08:01)
[2016-09-19] MEDS: Polyethylene Glycol 3350* 17 GM PACKET PO SCH (08:03)
--- NOTE | 2016-09-19 09:16 | PN ---
Subjective Date of Service: 09/19/16 Interval History: Ms. Cyr reports feeling much better and more "awake" today. She believes that she came to the hospital because of confusion but doesn't have much recollection of prior events. She denies complaint today including chest pain, SOB, nausea, or abdominal pain. Family History: Unchanged from Admission Social History: Unchanged from Admission Past Medical History: Unchanged from Admission Objective Active Medications: Acetaminophen (Tylenol Tab*) 650 mg PO Q6H PRN Amlodipine Besylate (Norvasc Tab*) 10 mg PO DAILY [facility] Aspirin (Aspirin Tab*) 325 mg PO DAILY [facility] Celecoxib (Celebrex Cap*) 200 mg PO DAILY [facility] Cyclobenzaprine HCl (Flexeril Tab*) 10 mg PO BEDTIME PRN Docusate Sodium (Colace Cap*) 200 mg PO BID [facility] Gabapentin (Neurontin Cap(*)) 600 mg PO 0800,1200 [facility] Gabapentin (Neurontin Cap(*)) 900 mg PO BEDTIME [facility] Heparin Sodium (Porcine) (Heparin Vial(*)) 5,000 units SUBCUT Q8HR [facility] Levofloxacin/Dextrose (Levaquin 250 Mg Ivpremx(*)) 250 mg in 50 mls @ 50 mls/ hr IVPB Q24H [facility] Sodium Chloride (Ns 0.9% 1000 Ml*) 1,000 mls @ 75 mls/hr IV PER RATE [facility] Melatonin (Melatonin (Nf)) 3 mg PO BEDTIME PRN; Protocol Omeprazole (Prilosec Cap*) 20 mg PO 0730 [facility] Ondansetron HCl (Zofran Inj*) 4 mg IV Q6H PRN Oxycodone/Acetaminophen (Percocet 5/325 Tab*) 1 tab PO Q6H PRN Polyethylene Glycol/Electrolytes (Miralax*) 17 gm PO DAILY [facility] Vital Signs 09/18/16 09/18/16 09/18/16 09:44 10:57 12:20 Temperature 97.6 F Pulse Rate 67 Respiratory 16 16 16 Rate Blood Pressure 124/50 (mmHg) O2 Sat by Pulse 97 Oximetry 09/18/16 09/18/16 09/18/16 12:24 12:57 14:24 Temperature Pulse Rate Respiratory 16 16 16 Rate Blood Pressure (mmHg) O2 Sat by Pulse Oximetry 09/18/16 09/18/16 09/18/16 14:57 15:31 15:41 Temperature 98.0 F Pulse Rate 71 Respiratory 16 20 16 Rate Blood Pressure 136/62 (mmHg) O2 Sat by Pulse 94 Oximetry 09/18/16 09/18/16 09/18/16 16:24 16:57 18:18 Temperature Pulse Rate Respiratory 16 16 16 Rate Blood Pressure (mmHg) O2 Sat by Pulse Oximetry 09/18/16 09/18/16 09/18/16 18:24 18:37 20:00 Temperature 97.5 F Pulse Rate 73 Respiratory 16 16 16 Rate Blood Pressure 135/60 (mmHg) O2 Sat by Pulse 96 Oximetry 09/18/16 09/18/16 09/18/16 20:18 20:19 20:24 Temperature Pulse Rate Respiratory 16 16 16 Rate Blood Pressure (mmHg) O2 Sat by Pulse Oximetry 09/18/16 09/19/16 09/19/16 23:42 07:09 07:30 Temperature 97.5 F 98.0 F Pulse Rate 70 80 Respiratory 16 18 16 Rate Blood Pressure 124/52 135/73 (mmHg) O2 Sat by Pulse 90 90 Oximetry 09/19/16 09/19/16 07:49 08:00 Temperature Pulse Rate Respiratory 16 Rate Blood Pressure (mmHg) O2 Sat by Pulse 90 Oximetry Oxygen Devices in Use Now: None - 2Lnc Appearance: Elderly female sitting up in bed in NAD Eyes: No Scleral Icterus Ears/Nose/Mouth/Throat: Mucous Membranes Moist Neck: Trachea Midline Respiratory: Symmetrical Chest Expansion and Respiratory Effort, Clear to Auscultation Cardiovascular: NL Sounds; No Murmurs; No JVD, No Edema Abdominal: NL Sounds; No Tenderness; No Distention Lymphatic: No Cervical Adenopathy Extremities: No Edema Skin: No Rash or Ulcers Neurological: Alert and Oriented x 3, - - R UE contracted, L UE with +1 strength , only able to move toes weakly to B LEs Nutrition: Taking PO's Result Diagrams: 09/19/16 06:44 09/19/16 06:44 Additional Lab and Data: Lab Results 09/18/16 09/18/16 09/18/16 Range/Units 04:05 04:05 04:05 WBC 19.2 H (3.5-10.8) 10^3/ul RBC 4.34 (4.0-5.4) 10^6/ul Hgb 11.8 L (12.0-16.0) g/dl Hct 36 (35-47) % MCV 83 (80-97) fL MCH 27 (27-31) pg MCHC 33 (31-36) g/dl RDW 17 H (10.5-15) % Plt Count 191 (150-450) 10^3/ul MPV 9 (7.4-10.4) um3 Neut % (Auto) 87.1 H (38-83) % Lymph % (Auto) 5.7 L (25-47) % [place] % (Auto) 7.0 (1-9) % Eos % (Auto) 0 (0-6) % Baso % (Auto) 0.2 (0-2) % Absolute Neuts (auto) 16.7 H (1.5-7.7) 10^3/ul Absolute Lymphs (auto) 1.1 (1.0-4.8) 10^3/ul Absolute Monos (auto) 1.3 H (0-0.8) 10^3/ul Absolute Eos (auto) 0 (0-0.6) 10^3/ul Absolute Basos (auto) 0 (0-0.2) 10^3/ul Absolute Nucleated RBC 0 10^3/ul Nucleated RBC % 0 Sodium 135 (133-145) mmol/L Potassium 3.7 (3.5-5.0) mmol/L Chloride 100 L (101-111) mmol/L Carbon Dioxide 24 (22-32) mmol/L Anion Gap 11 (2-11) mmol/L BUN 15 (6-24) mg/dL Creatinine 0.87 (0.51-0.95) mg/dL Est GFR ( Amer) 79.6 (>60) Est GFR (Non-Af Amer) 61.9 (>60) BUN/Creatinine Ratio 17.2 (8-20) Glucose 200 H (70-100) mg/dL Lactic Acid 3.8 H* (0.5-2.0) mmol/L Calcium 8.8 (8.6-10.3) mg/dL Magnesium 1.6 L (1.9-2.7) mg/dL Total Bilirubin 0.50 (0.2-1.0) mg/dL AST 23 (13-39) U/L ALT 13 (7-52) U/L Alkaline Phosphatase 79 (34-104) U/L Troponin I 0.01 (<0.04) ng/mL Total Protein 6.6 (6.4-8.9) g/dL Albumin 3.4 (3.2-5.2) g/dL Globulin 3.2 (2-4) g/dL Albumin/Globulin Ratio 1.1 (1-3) Urine Color Urine Appearance Urine pH (5-9) Ur Specific [place] (1.010-1.030) Urine Protein (Negative) Urine Ketones (Negative) Urine Blood (Negative) Urine Nitrate (Negative) Urine Bilirubin (Negative) Urine Urobilinogen (Negative) Ur Leukocyte Esterase (Negative) Urine WBC (Auto) (Absent) Urine RBC (Auto) (Absent) Ur Squamous Epith Cells (Absent) Urine Bacteria (Absent) Hyaline Casts (Absent) Urine Glucose (Negative) Serum Alcohol < 10 (<10) mg/dL 09/18/16 Range/Units 05:00 WBC (3.5-10.8) 10^3/ul RBC (4.0-5.4) 10^6/ul Hgb (12.0-16.0) g/dl Hct (35-47) % MCV (80-97) fL MCH (27-31) pg MCHC (31-36) g/dl RDW (10.5-15) % Plt Count (150-450) 10^3/ul MPV (7.4-10.4) um3 Neut % (Auto) (38-83) % Lymph % (Auto) (25-47) % [place] % (Auto) (1-9) % Eos % (Auto) (0-6) % Baso % (Auto) (0-2) % Absolute Neuts (auto) (1.5-7.7) 10^3/ul Absolute Lymphs (auto) (1.0-4.8) 10^3/ul Absolute Monos (auto) (0-0.8) 10^3/ul Absolute Eos (auto) (0-0.6) 10^3/ul Absolute Basos (auto) (0-0.2) 10^3/ul Absolute Nucleated RBC 10^3/ul Nucleated RBC % Sodium (133-145) mmol/L Potassium (3.5-5.0) mmol/L Chloride (101-111) mmol/L Carbon Dioxide (22-32) mmol/L Anion Gap (2-11) mmol/L BUN (6-24) mg/dL Creatinine (0.51-0.95) mg/dL Est GFR ( Amer) (>60) Est GFR (Non-Af Amer) (>60) BUN/Creatinine Ratio (8-20) Glucose (70-100) mg/dL Lactic Acid (0.5-2.0) mmol/L Calcium (8.6-10.3) mg/dL Magnesium (1.9-2.7) mg/dL Total Bilirubin (0.2-1.0) mg/dL AST (13-39) U/L ALT (7-52) U/L Alkaline Phosphatase (34-104) U/L Troponin I (<0.04) ng/mL Total Protein (6.4-8.9) g/dL Albumin (3.2-5.2) g/dL Globulin (2-4) g/dL Albumin/Globulin Ratio (1-3) Urine Color Yellow Urine Appearance Cloudy Urine pH 5.0 (5-9) Ur Specific [place] 1.012 (1.010-1.030) Urine Protein 2+(100 mg/dl) H (Negative) Urine Ketones Negative (Negative) Urine Blood Negative (Negative) Urine Nitrate Negative (Negative) Urine Bilirubin Negative (Negative) Urine Urobilinogen Negative (Negative) Ur Leukocyte Esterase Trace H (Negative) Urine WBC (Auto) 1+(6-10/hpf) H (Absent) Urine RBC (Auto) 2+(6-10/hpf) H (Absent) Ur Squamous Epith Cells Present H (Absent) Urine Bacteria 1+ H (Absent) Hyaline Casts Present H (Absent) Urine Glucose Negative (Negative) Serum Alcohol (<10) mg/dL Microbiology and Other Data: Microbiology 09/18/16 14:45 Legionella Urinary Antigen - Final Urine Negative Legionella Streptococcus pneumoniae Ag Screen - Final Negative S. pneumo Antigen Diagnostic Imaging: ECG, personally reviewed: 1st degree AV rate 92, diffuse non-specific ST-T changes CXR, personally reviewed: retro-cardiac infiltrate best seen on lateral view Assess/Plan/Problems-Billing Assessment: Ms. Cyr is an 86 yo female with a PMH of MS, HTN, recurrent UTIs, chronic pain, and BrCA who was sent by [facility] with concern for fever and confusion and was found to have LLL pneumonia and UTI. - Patient Problems (1) Sepsis Current Visit: Yes Status: Acute Comment: - Resolving. Mentation back to baseline. WBC falling. Pt afebrile x 24 hrs. - Combination of pneumonia and urinary source. On arrival, pt met sepsis criteria with a qSOFA score of 1 for AMS and by SIRS criteria with elevated lactate, leukocytosis, and fever. - Continue IV levofloxacin, D/C IVF. (2) LLL pneumonia Comment: - Now off O2. - Chest xray with LL pneumonia on arrival. Legionella and S. pneumo antigens negative. Blood cx with NGTD. - Continue IV levofloxacin, D/C IVF. (3) UTI (urinary tract infection) Comment: - UA showed 1+ bacteria and trace leukocyte eserase. - Continue IV levofloxacin. - Ace catheter placed here in ED with concern for retention, D/C now. - Monitor urine cx. (4) HTN (hypertension) Comment: - BP well controlled. - Continue amlodipine. (5) Multiple sclerosis Comment: - Continue gabapentin, oxycodone, flexeril, and celecoxib for chronic pain. - She is wheelchair bound at baseline. (6) Diabetes Comment: - Patient and family have previously indicated that they do not wish to start treatment for hyperglycemia. - D/C FS. (7) DNR (do not resuscitate) Comment: - MOLST updated 09/18. Patient is DNR/DNI. (8) DVT prophylaxis Comment: - SQ heparin. Status and Disposition: Inpatient admission. Anticipate discharge back to [facility] when medically stable.
[2016-09-20] MEDS: oxyCODONE/Acetamin 5/325 MG* TAB PO PRN ×2 (01:29→06:36)
[2016-09-20] MEDS: Levofloxacin 250 MG IVPREMX(*) 250 MG/50 ML BAG IVPB SCH (05:05)
[2016-09-20] MEDS: Heparin VIAL(*) 5000 UNITS/ML VIAL (FIVE THOUSAND) SUBCUT SCH (05:34)
[2016-09-20 06:15] LABS: Hematocrit 37 % (35-47); Hemoglobin 11.9 g/dl (12.0-16.0); Mean Corpuscular HGB Conc 32 g/dl (31-36); Mean Corpuscular Hemoglobin 28 pg (27-31); Mean Corpuscular Volume 87 fL (80-97); Mean Platelet Volume 9 um3 (7.4-10.4); Red Blood Count 4.27 10^6/ul (4.0-5.4); Red Cell Distribution Width 17 % (10.5-15); White Blood Count 11.2 10^3/ul (3.5-10.8)
--- NOTE | 2016-09-20 08:05 | PN ---
Subjective Date of Service: 09/20/16 Interval History: Ms. Cyr states that she is feeling quite well this morning and is eager for discharge back home to [place]. She denies chest pain, SOB, nausea, or abdominal pain. Family History: Unchanged from Admission Social History: Unchanged from Admission Past Medical History: Unchanged from Admission Objective Active Medications: Acetaminophen (Tylenol Tab*) 650 mg PO Q6H PRN Amlodipine Besylate (Norvasc Tab*) 10 mg PO DAILY ENDER Aspirin (Aspirin Tab*) 325 mg PO DAILY ENDER Celecoxib (Celebrex Cap*) 200 mg PO DAILY ENDER Cyclobenzaprine HCl (Flexeril Tab*) 10 mg PO BEDTIME PRN Docusate Sodium (Colace Cap*) 200 mg PO BID ENDER Gabapentin (Neurontin Cap(*)) 600 mg PO 0800,1200 ENDER Gabapentin (Neurontin Cap(*)) 900 mg PO BEDTIME ENDER Heparin Sodium (Porcine) (Heparin Vial(*)) 5,000 units SUBCUT Q8HR ENDER Levofloxacin/Dextrose (Levaquin 250 Mg Ivpremx(*)) 250 mg in 50 mls @ 50 mls/ hr IVPB Q24H ENDER Melatonin (Melatonin (Nf)) 3 mg PO BEDTIME PRN; Protocol Omeprazole (Prilosec Cap*) 20 mg PO 0730 ENDER Ondansetron HCl (Zofran Inj*) 4 mg IV Q6H PRN Oxycodone/Acetaminophen (Percocet 5/325 Tab*) 1 tab PO Q6H PRN Polyethylene Glycol/Electrolytes (Miralax*) 17 gm PO DAILY [facility] Vital Signs 09/19/16 09/19/16 09/19/16 09:09 11:37 12:46 Temperature 97.7 F Pulse Rate 69 Respiratory 16 16 16 Rate Blood Pressure 126/53 (mmHg) O2 Sat by Pulse 94 Oximetry 09/19/16 09/19/16 09/19/16 14:34 15:18 16:34 Temperature 97.8 F Pulse Rate 74 Respiratory 18 20 16 Rate Blood Pressure 129/61 (mmHg) O2 Sat by Pulse 92 Oximetry 09/19/16 09/19/16 09/19/16 19:42 20:00 20:10 Temperature 97.9 F Pulse Rate 77 Respiratory 20 16 16 Rate Blood Pressure 137/68 (mmHg) O2 Sat by Pulse 93 Oximetry 09/19/16 09/19/16 09/20/16 23:36 23:45 01:29 Temperature 98.4 F Pulse Rate 72 Respiratory 16 16 Rate Blood Pressure 136/58 (mmHg) O2 Sat by Pulse 89 91 Oximetry 09/20/16 09/20/16 04:39 06:36 Temperature 98.2 F Pulse Rate 74 Respiratory 16 16 Rate Blood Pressure 144/64 (mmHg) O2 Sat by Pulse 95 Oximetry Oxygen Devices in Use Now: None - 2Lnc Appearance: Female sitting up in bed in NAD Eyes: No Scleral Icterus Ears/Nose/Mouth/Throat: Mucous Membranes Moist Neck: Trachea Midline Respiratory: Symmetrical Chest Expansion and Respiratory Effort, Clear to Auscultation Cardiovascular: NL Sounds; No Murmurs; No JVD, No Edema Abdominal: NL Sounds; No Tenderness; No Distention Lymphatic: No Cervical Adenopathy Extremities: No Edema Skin: No Rash or Ulcers Neurological: Alert and Oriented x 3, - - Contractions and weakness bilaterally , unchanged Result Diagrams: 09/20/16 05:33 09/19/16 06:44 Additional Lab and Data: Lab Results 09/18/16 09/18/16 09/18/16 Range/Units 04:05 04:05 04:05 WBC 19.2 H (3.5-10.8) 10^3/ul RBC 4.34 (4.0-5.4) 10^6/ul Hgb 11.8 L (12.0-16.0) g/dl Hct 36 (35-47) % MCV 83 (80-97) fL MCH 27 (27-31) pg MCHC 33 (31-36) g/dl RDW 17 H (10.5-15) % Plt Count 191 (150-450) 10^3/ul MPV 9 (7.4-10.4) um3 Neut % (Auto) 87.1 H (38-83) % Lymph % (Auto) 5.7 L (25-47) % [place] % (Auto) 7.0 (1-9) % Eos % (Auto) 0 (0-6) % Baso % (Auto) 0.2 (0-2) % Absolute Neuts (auto) 16.7 H (1.5-7.7) 10^3/ul Absolute Lymphs (auto) 1.1 (1.0-4.8) 10^3/ul Absolute Monos (auto) 1.3 H (0-0.8) 10^3/ul Absolute Eos (auto) 0 (0-0.6) 10^3/ul Absolute Basos (auto) 0 (0-0.2) 10^3/ul Absolute Nucleated RBC 0 10^3/ul Nucleated RBC % 0 Sodium 135 (133-145) mmol/L Potassium 3.7 (3.5-5.0) mmol/L Chloride 100 L (101-111) mmol/L Carbon Dioxide 24 (22-32) mmol/L Anion Gap 11 (2-11) mmol/L BUN 15 (6-24) mg/dL Creatinine 0.87 (0.51-0.95) mg/dL Est GFR ( Amer) 79.6 (>60) Est GFR (Non-Af Amer) 61.9 (>60) BUN/Creatinine Ratio 17.2 (8-20) Glucose 200 H (70-100) mg/dL Lactic Acid 3.8 H* (0.5-2.0) mmol/L Calcium 8.8 (8.6-10.3) mg/dL Magnesium 1.6 L (1.9-2.7) mg/dL Total Bilirubin 0.50 (0.2-1.0) mg/dL AST 23 (13-39) U/L ALT 13 (7-52) U/L Alkaline Phosphatase 79 (34-104) U/L Troponin I 0.01 (<0.04) ng/mL Total Protein 6.6 (6.4-8.9) g/dL Albumin 3.4 (3.2-5.2) g/dL Globulin 3.2 (2-4) g/dL Albumin/Globulin Ratio 1.1 (1-3) Urine Color Urine Appearance Urine pH (5-9) Ur Specific [place] (1.010-1.030) Urine Protein (Negative) Urine Ketones (Negative) Urine Blood (Negative) Urine Nitrate (Negative) Urine Bilirubin (Negative) Urine Urobilinogen (Negative) Ur Leukocyte Esterase (Negative) Urine WBC (Auto) (Absent) Urine RBC (Auto) (Absent) Ur Squamous Epith Cells (Absent) Urine Bacteria (Absent) Hyaline Casts (Absent) Urine Glucose (Negative) Serum Alcohol < 10 (<10) mg/dL 09/18/16 Range/Units 05:00 WBC (3.5-10.8) 10^3/ul RBC (4.0-5.4) 10^6/ul Hgb (12.0-16.0) g/dl Hct (35-47) % MCV (80-97) fL MCH (27-31) pg MCHC (31-36) g/dl RDW (10.5-15) % Plt Count (150-450) 10^3/ul MPV (7.4-10.4) um3 Neut % (Auto) (38-83) % Lymph % (Auto) (25-47) % [place] % (Auto) (1-9) % Eos % (Auto) (0-6) % Baso % (Auto) (0-2) % Absolute Neuts (auto) (1.5-7.7) 10^3/ul Absolute Lymphs (auto) (1.0-4.8) 10^3/ul Absolute Monos (auto) (0-0.8) 10^3/ul Absolute Eos (auto) (0-0.6) 10^3/ul Absolute Basos (auto) (0-0.2) 10^3/ul Absolute Nucleated RBC 10^3/ul Nucleated RBC % Sodium (133-145) mmol/L Potassium (3.5-5.0) mmol/L Chloride (101-111) mmol/L Carbon Dioxide (22-32) mmol/L Anion Gap (2-11) mmol/L BUN (6-24) mg/dL Creatinine (0.51-0.95) mg/dL Est GFR ( Amer) (>60) Est GFR (Non-Af Amer) (>60) BUN/Creatinine Ratio (8-20) Glucose (70-100) mg/dL Lactic Acid (0.5-2.0) mmol/L Calcium (8.6-10.3) mg/dL Magnesium (1.9-2.7) mg/dL Total Bilirubin (0.2-1.0) mg/dL AST (13-39) U/L ALT (7-52) U/L Alkaline Phosphatase (34-104) U/L Troponin I (<0.04) ng/mL Total Protein (6.4-8.9) g/dL Albumin (3.2-5.2) g/dL Globulin (2-4) g/dL Albumin/Globulin Ratio (1-3) Urine Color Yellow Urine Appearance Cloudy Urine pH 5.0 (5-9) Ur Specific [place] 1.012 (1.010-1.030) Urine Protein 2+(100 mg/dl) H (Negative) Urine Ketones Negative (Negative) Urine Blood Negative (Negative) Urine Nitrate Negative (Negative) Urine Bilirubin Negative (Negative) Urine Urobilinogen Negative (Negative) Ur Leukocyte Esterase Trace H (Negative) Urine WBC (Auto) 1+(6-10/hpf) H (Absent) Urine RBC (Auto) 2+(6-10/hpf) H (Absent) Ur Squamous Epith Cells Present H (Absent) Urine Bacteria 1+ H (Absent) Hyaline Casts Present H (Absent) Urine Glucose Negative (Negative) Serum Alcohol (<10) mg/dL Microbiology and Other Data: Microbiology 09/18/16 14:45 Legionella Urinary Antigen - Final Urine Negative Legionella Streptococcus pneumoniae Ag Screen - Final Negative S. pneumo Antigen Diagnostic Imaging: ECG, personally reviewed: 1st degree AV rate 92, diffuse non-specific ST-T changes CXR, personally reviewed: retro-cardiac infiltrate best seen on lateral view Assess/Plan/Problems-Billing Assessment: Ms. Cyr is an 86 yo female with a PMH of MS, HTN, recurrent UTIs, chronic pain, and BrCA who was sent by [facility] with concern for fever and confusion and was found to have LLL pneumonia and UTI. - Patient Problems (1) Sepsis Current Visit: Yes Status: Acute Comment: - Resolved. Mentation back to baseline. WBC falling. Pt afebrile x 24 hrs. - Combination of pneumonia and urinary source. On arrival, pt met sepsis criteria with a qSOFA score of 1 for AMS and by SIRS criteria with elevated lactate, leukocytosis, and fever. - Complete course of levaquin. (2) LLL pneumonia Comment: - Now off O2. - Chest xray with LL pneumonia on arrival. Legionella and S. pneumo antigens negative. Blood cx with NGTD. - Complete course of levaquin. (3) UTI (urinary tract infection) Comment: - UA showed 1+ bacteria and trace leukocyte eserase. - Complete course of levaquin. - Monitor urine cx. (4) HTN (hypertension) Comment: - BP well controlled. - Continue amlodipine. (5) Multiple sclerosis Comment: - Continue gabapentin, oxycodone, flexeril, and celecoxib for chronic pain. - She is wheelchair bound at baseline. (6) Diabetes Comment: - Patient and family have previously indicated that they do not wish to start treatment for hyperglycemia. (7) DNR (do not resuscitate) Comment: - MOLST updated 09/18. Patient is DNR/DNI. (8) DVT prophylaxis Comment: - SQ heparin. Status and Disposition: Inpatient admission. Discharge to [place].
[2016-09-20] MEDS: Gabapentin CAP(*) 300 MG PO SCH ×2 (09:47→12:38)
[2016-09-20] MEDS: Aspirin TAB* 325 MG PO SCH (09:48)
[2016-09-20] MEDS: Omeprazole CAP* 20 MG PO SCH (09:48)
[2016-09-20] MEDS: Docusate CAP* 100 MG PO SCH (09:48)
[2016-09-20] MEDS: amLODIPine TAB* 5 MG PO SCH (09:48)
[2016-09-20] MEDS: celeCOXIB CAP* 200 MG PO SCH (09:49)
[2016-09-20] MEDS: Polyethylene Glycol 3350* 17 GM PACKET PO SCH (10:11)
[2016-09-20 10:13] VITALS: BP 136/59
--- NOTE | 2016-09-20 13:45 | DS ---
CC: Dr. Gardner* [facility] MEDICINE DISCHARGE SUMMARY: DATE OF ADMISSION: 09/18/2016 DATE OF DISCHARGE: 09/20/2016 ATTENDING PHYSICIAN: Angel Staley MD * (dictation provided by Kiya Pham NP) PRIMARY DIAGNOSIS: 1. Sepsis. 2. Pneumonia. 3. Urinary tract infection. SECONDARY DIAGNOSES: 1. Multiple sclerosis. 2. Hypertension. 3. Recurrent urinary tract infections. 4. Chronic pain. 5. History of breast cancer. MEDICATIONS AT THE TIME OF DISCHARGE:: 1. Levaquin 250 mg p.o. daily x5 days. 2. Senna 8.6/50 two tabs p.o. at bedtime. 3. Mucinex 1 tab p.o. b.i.d. 4. MiraLAX 17 grams p.o. daily. 5. Cholecalciferol 50,000 unit p.o. monthly. 6. Bisacodyl suppository 10 mg per rectum daily p.r.n. 7. Tylenol 650 mg p.o. every 4 hours p.r.n. 8. Cyclobenzaprine 10 mg p.o. at bedtime p.r.n. 9. Aspirin 325 mg p.o. daily. 10. Gabapentin 900 mg p.o. at bedtime; 600 mg p.o. at 8 o'clock and noon. 11. Multivitamin with mineral 1 tab p.o. daily. 12. Melatonin 3 mg p.o. at bedtime p.r.n. 13. Celecoxib 200 mg p.o. daily. 14. Amlodipine 10 mg p.o. daily. 15. Oxycodone with acetaminophen 5/325 mg one tab p.o. every 6 hours p.r.n. HOSPITAL COURSE: Ms. Cyr is an 86-year-old female from [facility] who presented to the hospital on 09/18/16 with concern for a fever. Please see dictated H and P from Julian Wilkinson MD for complete details. In brief, the patient presented to the ED with reported fever and confusion. In the emergency room she had chest x-ray which showed concern for a left lower lobe pneumonia, a positive UA, a fever of 101.7, and a white count of 19.2. Ms. Cyr was admitted to the hospital for treatment of sepsis. She was treated with intravenous Levaquin for pneumonia and UTI. With this, Ms. Cyr has been doing very well. She is not requiring any oxygen. Her confusion has resolved. She is afebrile. Her white blood cell count has returned to essentially normal at 11.2 today. Ms. Cyr is medically stable for discharge to [facility] to continue course of Levaquin for treatment of suspected left lower lobe pneumonia and concomitant UTI. The urine culture results are still pending at the time of discharge and those can be followed up on by the providers at [facility]. DISPOSITION: To [facility]. DIET: Regular. ACTIVITY: As tolerated. FOLLOWUP PLANS: Please followup with the providers at [facility] regarding reevaluation after treatment for pneumonia and UTI. TIME SPENT: Approximately 60 minutes was spent in the discharge of this patient , more than half the time spent with the patient at the bedside reviewing the events leading up to this hospitalization and during the hospitalization, performing the physical examination, and reviewing the plan of care. KIYA PHAM NP [id number]/[facility] #: [id number] [place]
--- NOTE | 2016-09-21 04:45 | DS ---
CANCEL THIS REPORT PER KIYA PHAM - IS A DUPLICATE DICTATION CC: Janusz Gardner MD * HOSPITAL MEDICINE DISCHARGE SUMMARY: DATE OF ADMISSION: 09/18/16 DATE OF DISCHARGE: 09/20/16 PRIMARY CARE PHYSICIAN: Janusz Gardner MD ATTENDING PHYSICIAN: Angel Staley MD *(dictation provided by Kiya Pham NP ). PRIMARY DIAGNOSES: 1. Pneumonia. 2. Urinary tract infection. SECONDARY DIAGNOSES: 1. History of multiple sclerosis. 2. Hypertension. 3. Recurrent urinary tract infections. 4. Chronic pain. 5. History of breast cancer. MEDICATIONS AT THE TIME OF DISCHARGE: 1. Levaquin 250 mg p.o. x5 days. 2. Senna-S 8.6/50 mg 2 tabs p.o. bedtime. 3. Mucinex 1 tab p.o. b.i.d. 4. MiraLAX 17 g p.o. daily. 5. Cholecalciferol 50,000 units p.o. monthly. 6. Bisacodyl 10 mg p.r. daily p.r.n. 7. Tylenol 650 mg p.o. q. 4 hours p.r.n. 8. Cyclobenzaprine 10 mg p.o. bedtime p.r.n. 9. Aspirin 325 mg p.o. daily. 10. Gabapentin 900 mg p.o. bedtime and 600 mg p.o. at 8 o'clock and 12 o'clock. 11. Multivitamin with mineral 1 tab p.o. daily. 12. Melatonin 3 mg p.o. bedtime p.r.n. 13. Celecoxib 200 mg p.o. daily. 14. Amlodipine 10 mg p.o. daily. 15. Oxycodone with acetaminophen 5/325 mg 1 tab p.o. q. 6 hours p.r.n. HOSPITAL COURSE: Ms. Cyr is an 86-year-old female, who presented to the emergency room on 09/18/16 with concern for fever and confusion, please see the dictated H and P from Dr. Julian Wilkinson for complete details. In brief, at the time of admission, the patient had a chest x-ray, which showed a left lower lobe pneumonia. She also had a urinalysis, which was suspicious for infection with trace leuk esterase and 1+ bacteria. She had a fever to 101.7 and a white blood cell count of 19.2. Mr. Cyr was admitted to the hospital. She was treated with intravenous Levaquin. With this, her confusion has resolved. She is not hypoxic on room air. She is breathing easily and tolerating oral intake well. Ms. Cyr is medically stable for discharge to return to [facility]. She will be completing a course of Levaquin and treatment of pneumonia and urinary tract infection. Urine culture from 09/18/16 is pending and that can be reviewed with the providers at [facility]. DISPOSITION: To [facility]. DIET: Regular. ACTIVITY: As tolerated. FOLLOWUP PLANS: Please follow up with the providers at [facility] regarding resolution and treatment for pneumonia and UTI. KIYA PHAM NP [id number]/[facility] #: [id number] [place]
== END 2016-09-20 14:15 | DRG 871 ==
LOC: ED 03:53 → MED 05:30
PROVIDERS: ADMIT Hospitalist; ATTEND Internal Medicine
DX: A41.9 Sepsis, unspecified organism (principal); J18.9 Pneumonia, unspecified organism; N39.0 Urinary tract infection, site not specified; G35 Multiple sclerosis; I10 Essential (primary) hypertension; G89.29 Other chronic pain; Z85.3 Personal history of malignant neoplasm of breast; Z87.440 Personal history of urinary (tract) infections; Z79.82 Long term (current) use of aspirin; Z79.1 Long term (current) use of non-steroidal anti-inflammatories (NSAID); Z79.891 Long term (current) use of opiate analgesic; Z79.899 Other long term (current) drug therapy; Z88.8 Allergy status to other drugs, medicaments and biological substances; Z66 Do not resuscitate; I44.0 Atrioventricular block, first degree
CPT/HCPCS: 36415; 71020; 80048; 80053; 80320; 81003; 81015; 83605; 83735; 84484; 85025; 87040; 87086; 87899; 93005; 94660; 94760; 96374; 99284; A9270-GY; G0480; G8996-GN-CK; G8997-GN-CK; G8998-GN-CK; J1644; J1956

== ENCOUNTER 2017-01-05 21:01 | Inpatient (IN) | payer MEDICARE ==
[2017-01-05 22:07] LABS: Hematocrit 34 % (35-47); Hemoglobin 11.5 g/dl (12.0-16.0); Mean Corpuscular HGB Conc 33 g/dl (31-36); Mean Corpuscular Hemoglobin 28 pg (27-31); Mean Corpuscular Volume 85 fL (80-97); Mean Platelet Volume 8 um3 (7.4-10.4); Red Blood Count 4.05 10^6/ul (4.0-5.4); Red Cell Distribution Width 16 % (10.5-15); White Blood Count 9.4 10^3/ul (3.5-10.8)
[2017-01-05 22:22] LABS: Albumin 2.7 g/dL (3.2-5.2); BUN/Creatinine Ratio 17.1 (8-20); Calcium 8.1 mg/dL (8.6-10.3); EGFR African American 102.3 (>60); EGFR Non-African American 79.5 (>60); Globulin 3.4 g/dL (2-4); Potassium 3.2 mmol/L (3.5-5.0); Total Bilirubin 2.8 mg/dL (0.2-1.0); Total Protein 6.1 g/dL (6.4-8.9)
[2017-01-05 22:23] LABS: Troponin I 0.01 ng/mL (<0.04)
[2017-01-05 23:33] LABS: Urine Bacteria Absent (Absent); Urine Bilirubin Negative (Negative); Urine Glucose Negative (Negative); Urine Nitrite Negative (Negative)
--- NOTE | 2017-01-06 01:33 | HP ---
H&P (Free Text) History and Physical: PCP: Camron Gardner MD Date/Time of Evaluation: 01/05/2017 2250 CC: malaise HPI: Mrs Cyr (pronounced Soniya-karma) is an 86YO female resident of [facility] who was reportedly brought to [facility] for onset of back pain 2 days ago. However upon my evaluation, she states she "just feels bad" and admits to generalized weakness. She is quite fatigued, but arouses to voice and remains awake to answer questions, often with eyes closed. She denies pain, abdominal pain, chest pain, SOB, N/V, change in bowel/bladder, focal W/N/T, or other issues. PMedHx multiple sclerosis HTN recurrent UTIs chronic pain HX breast CA Ambulatory Orders Nursing to reconcile. Multiple Vitamins W/ Minerals [Centrum] 1 tab PO DAILY 03/06/16 Aspirin TAB* [Aspirin 325 MG TAB*] 325 mg PO DAILY tab 07/12/16 Cyclobenzaprine TAB* [Flexeril 10 MG TAB*] 10 mg PO BEDTIME PRN #0 tab 07/12/16 Gabapentin CAP(*) [Neurontin 300 CAP(*)] 600 mg PO 0800,1200 cap 07/12/16 Gabapentin CAP(*) [Neurontin 300 CAP(*)] 900 mg PO BEDTIME cap 07/12/16 Melatonin (NF) 3 mg PO BEDTIME PRN #0 tab 07/12/16 amLODIPine TAB* [Norvasc 5 mg TAB*] 10 mg PO DAILY tab 07/12/16 celeCOXIB CAP* [Celebrex CAP*] 200 mg PO DAILY cap 07/12/16 Acetaminophen TAB* 650 mg PO Q4HR PRN 09/18/16 Bisacodyl SUPP* 10 mg IN DAILY PRN 09/18/16 Cholecalciferol TAB* 50,000 units PO MONTHLY 09/18/16 Miralax* 17 gm PO DAILY 09/18/16 Mucinex* 1 tab PO BID 09/18/16 Senna-S 8.6-50 mg 2 tab PO BEDTIME 09/18/16 oxyCODONE/Acetamin 5/325 MG* [Percocet 5/325 TAB*] 1 tab PO Q6H PRN MDD 8 tabs 09/18/16 Levofloxacin TAB* [Levaquin TAB*] 250 mg PO DAILY #5 tab 09/20/16 Allergies Aminopyridine [From Ampyra] Allergy (Verified 01/05/17 22:08) Unknown Reaction Details Baclofen Allergy (Verified 01/05/17 22:08) Altered Mental Status Dalfampridine [From Ampyra] Allergy (Verified 01/05/17 22:08) Unknown Reaction Details Iodixanol [From Visipaque] Allergy (Verified 01/05/17 22:08) Rash PSurgHx hysterectomy L hip pinning SocHx: no tobacco, alcohol, or recreational drug HX; , resides at [facility]; DNR/I code status FamHx: unobtainable ROS: as above, otherwise reviewed and all were negative Constitutional: NAD, normally developed, overweight fatigued appearing elderly white female vitals: Vital Signs Temp 36.9 C 01/05/17 23:00 Pulse 72 01/05/17 23:00 Resp 18 01/05/17 23:00 BP 130/77 01/05/17 23:00 Pulse Ox 94 01/05/17 23:00 Intake & Output 01/05/17 01/05/17 01/06/17 11:59 23:59 11:59 Weight 64.864 kg HEENM: atraumatic; sclera/conjunctiva: non-icteric/clear; hearing: clinically moderately decreased; oropharynx: clear, mucosa tacky Neck: soft tissue: non-tender; thyroid: normal Pulmonary: clear to auscultation bilaterally, good aeration, no accessory muscle use CV: RR/RR, normal S1S2, no carotid bruit, no jugular venous distention, 2+ B DP/ PT, no edema Abdominal: soft, non-distended, minimal discomfort to RUQ, no rebound/guarding/ rigidity, normoactive bowel sounds, liver edge is palpable minimally tender 3.5- 4cm below the R inferior costal margin, no costovertebral angle tenderness Musculoskeletal: general: grossly intact, no palpable tenderness Integumental: normal appearance and texture of exposed skin Psychiatric orientation: AA & oriented to PPS affect: fatigued mood: cooperative eye contact: poor content: reliable responses: mildly slowed, voice weak insight: fair Testing: Lab Results 01/05/17 01/05/17 01/05/17 Range/Units 21:50 21:50 21:50 WBC 9.4 (3.5-10.8) 10^3/ul RBC 4.05 (4.0-5.4) 10^6/ul Hgb 11.5 L (12.0-16.0) g/dl Hct 34 L (35-47) % MCV 85 (80-97) fL MCH 28 (27-31) pg MCHC 33 (31-36) g/dl RDW 16 H (10.5-15) % Plt Count 218 (150-450) 10^3/ul MPV 8 (7.4-10.4) um3 Neut % (Auto) 73.3 (38-83) % Lymph % (Auto) 19.2 L (25-47) % [place] % (Auto) 5.4 (1-9) % Eos % (Auto) 1.4 (0-6) % Baso % (Auto) 0.7 (0-2) % Absolute Neuts (auto) 6.9 (1.5-7.7) 10^3/ul Absolute Lymphs (auto) 1.8 (1.0-4.8) 10^3/ul Absolute Monos (auto) 0.5 (0-0.8) 10^3/ul Absolute Eos (auto) 0.1 (0-0.6) 10^3/ul Absolute Basos (auto) 0.1 (0-0.2) 10^3/ul Absolute Nucleated RBC 0.01 10^3/ul Nucleated RBC % 0.1 INR (Anticoag Therapy) 1.59 H (0.89-1.11) APTT 33.4 (26.0-36.3) seconds Sodium 134 (133-145) mmol/L Potassium 3.2 L (3.5-5.0) mmol/L Chloride 104 (101-111) mmol/L Carbon Dioxide 24 (22-32) mmol/L Anion Gap 6 (2-11) mmol/L BUN 12 (6-24) mg/dL Creatinine 0.70 (0.51-0.95) mg/dL Est GFR ( Amer) 102.3 (>60) Est GFR (Non-Af Amer) 79.5 (>60) BUN/Creatinine Ratio 17.1 (8-20) Glucose 97 (70-100) mg/dL Lactic Acid (0.5-2.0) mmol/L Calcium 8.1 L (8.6-10.3) mg/dL Total Bilirubin 2.80 H (0.2-1.0) mg/dL AST 93 H (13-39) U/L ALT 73 H (7-52) U/L Alkaline Phosphatase 167 H (34-104) U/L Troponin I 0.01 (<0.04) ng/mL Total Protein 6.1 L (6.4-8.9) g/dL Albumin 2.7 L (3.2-5.2) g/dL Globulin 3.4 (2-4) g/dL Albumin/Globulin Ratio 0.8 L (1-3) Urine Color Urine Appearance Urine pH (5-9) Ur Specific [place] (1.010-1.030) Urine Protein (Negative) Urine Ketones (Negative) Urine Blood (Negative) Urine Nitrate (Negative) Urine Bilirubin (Negative) Urine Urobilinogen (Negative) Ur Leukocyte Esterase (Negative) Urine WBC (Auto) (Absent) Urine RBC (Auto) (Absent) Ur Squamous Epith Cells (Absent) Urine Bacteria (Absent) Urine Glucose (Negative) 01/05/17 01/05/17 Range/Units 21:50 23:00 WBC (3.5-10.8) 10^3/ul RBC (4.0-5.4) 10^6/ul Hgb (12.0-16.0) g/dl Hct (35-47) % MCV (80-97) fL MCH (27-31) pg MCHC (31-36) g/dl RDW (10.5-15) % Plt Count (150-450) 10^3/ul MPV (7.4-10.4) um3 Neut % (Auto) (38-83) % Lymph % (Auto) (25-47) % [place] % (Auto) (1-9) % Eos % (Auto) (0-6) % Baso % (Auto) (0-2) % Absolute Neuts (auto) (1.5-7.7) 10^3/ul Absolute Lymphs (auto) (1.0-4.8) 10^3/ul Absolute Monos (auto) (0-0.8) 10^3/ul Absolute Eos (auto) (0-0.6) 10^3/ul Absolute Basos (auto) (0-0.2) 10^3/ul Absolute Nucleated RBC 10^3/ul Nucleated RBC % INR (Anticoag Therapy) (0.89-1.11) APTT (26.0-36.3) seconds Sodium (133-145) mmol/L Potassium (3.5-5.0) mmol/L Chloride (101-111) mmol/L Carbon Dioxide (22-32) mmol/L Anion Gap (2-11) mmol/L BUN (6-24) mg/dL Creatinine (0.51-0.95) mg/dL Est GFR ( Amer) (>60) Est GFR (Non-Af Amer) (>60) BUN/Creatinine Ratio (8-20) Glucose (70-100) mg/dL Lactic Acid 1.1 (0.5-2.0) mmol/L Calcium (8.6-10.3) mg/dL Total Bilirubin (0.2-1.0) mg/dL AST (13-39) U/L ALT (7-52) U/L Alkaline Phosphatase (34-104) U/L Troponin I (<0.04) ng/mL Total Protein (6.4-8.9) g/dL Albumin (3.2-5.2) g/dL Globulin (2-4) g/dL Albumin/Globulin Ratio (1-3) Urine Color [place] Urine Appearance Cloudy Urine pH 6.0 (5-9) Ur Specific [place] 1.011 (1.010-1.030) Urine Protein 2+(100 mg/dl) H (Negative) Urine Ketones Negative (Negative) Urine Blood Negative (Negative) Urine Nitrate Negative (Negative) Urine Bilirubin Negative (Negative) Urine Urobilinogen Negative (Negative) Ur Leukocyte Esterase 3+ H (Negative) Urine WBC (Auto) 3+(>20/hpf) H (Absent) Urine RBC (Auto) 1+(3-5/hpf) H (Absent) Ur Squamous Epith Cells Present H (Absent) Urine Bacteria Absent (Absent) Urine Glucose Negative (Negative) US RUQ: IMPRESSION: Hepatomegaly and probable cirrhosis with small ascites. Bilateral pleural effusions. Gallstones with questionable cystic duct stone and minimal pericholecystic fluid. Findings are somewhat suspicious for cholecystitis and may be further with CT or HIDA scan. Mild right renal atrophy and cortical thinning without hydronephrosis. Impression: 86F presenting with malaise. Lab & RUQ US findings are suspicious for acute cholecystitis DIAGNOSIS & PLAN Primary acute cholecystitis : IV piperacillin/tazobactam : IVFs : NPO x/ meds w/ sips of water : consider surgical consult in AM pending clinical course : supportive care hepatomegaly : new compared to CT dated 09/07/2014 : HX breast CA : repeat CT abd/pel WO in AM : consider GI vs heme/onc consult in AM as appropriate Secondary multiple sclerosis : no acute issues HTN : review meds once reconciled HX breast CA : no acute issues Admission Rational: inpatient for IVFs & IV ABX to treat acute cholecystitis in patient at high risk for in-hospital mortality; inappropriate for outpatient setting DVTp: heparin SQ & SCDs Code Status: DNR/I HCP: sonJim
[2017-01-06] MEDS ORDERED: CMCS: Melatonin (NF) 3 MG TAB PO PRN (02:15)
[2017-01-06] MEDS ORDERED: Ondansetron INJ* 2 MG/ML VIAL IV PRN (02:17)
[2017-01-06] MEDS ORDERED: NS 0.9% 1000 ML* 1,000 ML IV SCH (02:30)
[2017-01-06] MEDS ORDERED: NS 0.9% 1000 ML* 1,000 ML IV ONE (02:30)
[2017-01-06] MEDS ORDERED: metroNIDAZOLE IV 500 MG/100ML* 100 ML IVPB SCH (03:00)
[2017-01-06] MEDS ORDERED: ZOSYN 3.375 GM x ONE DOSE over 30 miuntes IVPB ×2 (03:00)
[2017-01-06] MEDS ORDERED: Ciprofloxacin IV(*) 400 MG in D5W 250 ML BAG* 160 ML IVPB SCH (03:00)
[2017-01-06 05:03] LABS: Hematocrit 34 % (35-47); Hemoglobin 11.8 g/dl (12.0-16.0); Mean Corpuscular HGB Conc 34 g/dl (31-36); Mean Corpuscular Hemoglobin 29 pg (27-31); Mean Corpuscular Volume 84 fL (80-97); Mean Platelet Volume 8 um3 (7.4-10.4); Red Blood Count 4.08 10^6/ul (4.0-5.4); Red Cell Distribution Width 16 % (10.5-15); White Blood Count 9.5 10^3/ul (3.5-10.8)
[2017-01-06 05:16] LABS: Albumin 2.7 g/dL (3.2-5.2); BUN/Creatinine Ratio 16.4 (8-20); Calcium 8.2 mg/dL (8.6-10.3); Direct Bilirubin 2.5 mg/dL (0.03-0.18); EGFR African American 119.9 (>60); EGFR Non-African American 93.2 (>60); Globulin 3.4 g/dL (2-4); Indirect Bilirubin 0.9 mg/dL (0.3-1.0); Potassium 3.2 mmol/L (3.5-5.0); Total Bilirubin 3.4 mg/dL (0.2-1.0); Total Protein 6.1 g/dL (6.4-8.9)
[2017-01-06] MEDS: Omeprazole CAP* 20 MG PO SCH (05:21)
--- NOTE | 2017-01-06 07:58 | RAD ---
HISTORY: Jaundice COMPARISONS: CT dated January 06, 2017 TECHNIQUE: Multiple transverse and longitudinal ultrasound images were obtained of the right upper quadrant of the abdomen using grayscale, color Doppler, and spectral Doppler imaging. FINDINGS: LIVER: The liver is enlarged measuring 20.2 cm in long axis. There is a mild, microlobulated contour to the liver. There is a coarse echotexture of liver. There is normal hepatopedal flow of the portal vein on Doppler imaging. BILIARY TREE: There is no intrahepatic or extrahepatic biliary dilatation. The common duct measures 0.2 cm. GALLBLADDER: The gallbladder is distended. There is no sonographic Herring sign. There are gallstones with biliary sludge and small amount of pericholecystic fluid. There is a small calculus within the cystic duct. There is no gallbladder wall thickening. PANCREAS: The head of the pancreas is unremarkable. The tail of the pancreas is not well visualized secondary to overlying bowel gas. RIGHT KIDNEY: There is a 1.7 x 2.2 x 2.1 cm simple cyst of the midpole of the right kidney. There is no hydronephrosis or nephrolithiasis. The right kidney measures 8.6 x 5.2 x 5.2 cm. AORTA AND IVC: The aorta and IVC are unremarkable. Normal arterial and venous waveforms are identifiable on spectral Doppler imaging. FLUID: There are bilateral pleural effusions. There is trace ascites. OTHER FINDINGS: None. IMPRESSION: 1. HEPATOMEGALY WITH FINDINGS SUGGESTIVE OF CIRRHOSIS OF LIVER. 2. CHOLELITHIASIS WITH A SMALL CALCULUS WITHIN THE CYSTIC DUCT. 3. THERE IS PERICHOLECYSTIC FLUID. THERE IS NO GALLBLADDER WALL THICKENING OR SONOGRAPHIC HERRING SIGN. THE IMAGING FEATURES ARE INDETERMINATE FOR ACUTE CHOLECYSTITIS. 4. TRACE AMOUNT OF ASCITES WITH BILATERAL PLEURAL EFFUSIONS.
--- NOTE | 2017-01-06 08:18 | RAD ---
INDICATION: No hepatomegaly, history of breast cancer elevated liver function tests. COMPARISON: Comparison is made with a prior CT of the abdomen and pelvis from September 07, 2014. TECHNIQUE: A CT scan of the abdomen and pelvis was performed without intravenous or oral contrast. Contiguous axial sections were obtained from the lung bases through the symphysis pubis. Images were reconstructed in the coronal and sagittal planes. FINDINGS: The lung bases are clear. There are small bilateral pleural effusions. The liver and spleen are normal in size. No significant focal abnormality is seen on this noncontrast study. There are multiple gallstones present. The gallbladder is distended. There is stranding in the adjacent mesenteric fat suspicious for acute cholecystitis. The pancreas appears to be within normal limits. The adrenal glands are normal in size. No renal calculi or hydronephrosis is seen. There is a hypodense lesion arising from the anterior aspect of the right kidney measuring 1.8 cm in size which is unchanged from the prior study and appear to represent a cyst on the prior CT exam. The aorta is normal in caliber with moderate calcific plaque present. No significant enlarged retroperitoneal lymph nodes are seen. The stomach, small and large bowel appear nondistended. The appendix is not visualized. No inflammatory changes are seen in the right lower quadrant. There is a moderate amount of retained stool. There is no evidence for diverticulitis or colitis. No free intraperitoneal air or fluid is seen. The patient is status post total right hip replacement surgery. 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 IMPRESSION: 1. FINDINGS SUGGESTIVE OF ACUTE CHOLECYSTITIS. 2. SMALL BILATERAL PLEURAL EFFUSIONS. 3. POSTSURGICAL CHANGES IN BOTH HIPS. 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 THIS CAN BE FURTHER EVALUATED WITH AN X-RAY STUDY CLINICALLY NEEDED.
[2017-01-06] MEDS: Acetaminophen TAB* 325 MG PO PRN ×2 (08:27→21:04)
[2017-01-06] MEDS: Docusate CAP* 100 MG PO SCH ×2 (08:28→21:04)
[2017-01-06] MEDS: ZOSYN 3.375 GM Q8H per EXTENDED INFUSION IVPB SCH ×4 (08:28→16:39)
[2017-01-06] MEDS: Heparin VIAL(*) 5000 UNITS/ML VIAL (FIVE THOUSAND) SUBCUT SCH ×2 (09:29→16:36)
--- NOTE | 2017-01-06 13:08 | PN ---
Subjective Date of Service: 01/06/17 Interval History: Feels somewhat better today. Mild epigastric pain. Hungry. No new c/o. Objective Active Medications: Acetaminophen (Tylenol Tab*) 650 mg PO Q6H PRN PRN Reason: FEVER/PAIN Last Admin: 01/06/17 08:27 Dose: 650 mg Docusate Sodium (Colace Cap*) 200 mg PO BID [facility] Last Admin: 01/06/17 08:28 Dose: 200 mg Heparin Sodium (Porcine) (Heparin Vial(*)) 5,000 units SUBCUT Q8H [facility] Last Admin: 01/06/17 09:29 Dose: 5,000 units Piperacillin Sod/Tazobactam (Sod 3.375 gm/ Sodium Chloride) 100 mls @ 25 mls/ hr IVPB Q8H [facility] Last Admin: 01/06/17 08:28 Dose: 25 mls/hr Potassium Chloride/Dextrose (D5w 1/2 Ns Kcl 20 Meq 1000 Ml*) 1,000 mls @ 100 mls/hr IV PER RATE [facility] Omeprazole (Prilosec Cap*) 20 mg PO DAILY@0600 [facility] Last Admin: 01/06/17 05:21 Dose: 20 mg Ondansetron HCl (Zofran Inj*) 4 mg IV Q6H PRN PRN Reason: NAUSEA Vital Signs 01/05/17 01/06/17 01/06/17 23:00 00:00 01:00 Temperature 98.5 F Pulse Rate 72 76 74 Respiratory 18 18 17 Rate Blood Pressure 130/77 140/56 146/63 (mmHg) O2 Sat by Pulse 94 92 92 Oximetry 01/06/17 01/06/17 01/06/17 02:00 03:07 03:15 Temperature 98.7 F 98.8 F 98.8 F Pulse Rate 72 76 76 Respiratory 18 18 18 Rate Blood Pressure 133/64 144/49 134/60 (mmHg) O2 Sat by Pulse 92 93 95 Oximetry 01/06/17 01/06/17 01/06/17 07:18 08:00 11:11 Temperature 97.4 F 97.4 F 97.9 F Pulse Rate 77 76 72 Respiratory 20 20 20 Rate Blood Pressure 143/66 129/60 139/57 (mmHg) O2 Sat by Pulse 95 93 96 Oximetry Oxygen Devices in Use Now: None Appearance: Alert, partly up in bed. In good spirits. Looks comfortable. Eyes: No Scleral Icterus Neck: NL Appearance and Movements; NL JVP, No Thyroid Enlargement, Masses Respiratory: Symmetrical Chest Expansion and Respiratory Effort, Clear to Auscultation, Clear to Percussion Cardiovascular: NL Sounds; No Murmurs; No JVD, RRR, No Edema, - Abdominal: No Hepatosplenomegaly, - - mild epigastric tenderness. Nl BS. Extremities: No Edema, No Clubbing, Cyanosis, - Skin: No Rash or Ulcers, No Nodules or Sclerosis, - Neurological: Alert and Oriented x 3, NL Sensation Result Diagrams: 01/06/17 04:47 01/06/17 04:47 Additional Lab and Data: Lab Results 01/05/17 01/05/17 01/05/17 Range/Units 21:50 21:50 21:50 WBC 9.4 (3.5-10.8) 10^3/ul RBC 4.05 (4.0-5.4) 10^6/ul Hgb 11.5 L (12.0-16.0) g/dl Hct 34 L (35-47) % MCV 85 (80-97) fL MCH 28 (27-31) pg MCHC 33 (31-36) g/dl RDW 16 H (10.5-15) % Plt Count 218 (150-450) 10^3/ul MPV 8 (7.4-10.4) um3 Neut % (Auto) 73.3 (38-83) % Lymph % (Auto) 19.2 L (25-47) % [place] % (Auto) 5.4 (1-9) % Eos % (Auto) 1.4 (0-6) % Baso % (Auto) 0.7 (0-2) % Absolute Neuts (auto) 6.9 (1.5-7.7) 10^3/ul Absolute Lymphs (auto) 1.8 (1.0-4.8) 10^3/ul Absolute Monos (auto) 0.5 (0-0.8) 10^3/ul Absolute Eos (auto) 0.1 (0-0.6) 10^3/ul Absolute Basos (auto) 0.1 (0-0.2) 10^3/ul Absolute Nucleated RBC 0.01 10^3/ul Nucleated RBC % 0.1 INR (Anticoag Therapy) 1.59 H (0.89-1.11) APTT 33.4 (26.0-36.3) seconds Sodium 134 (133-145) mmol/L Potassium 3.2 L (3.5-5.0) mmol/L Chloride 104 (101-111) mmol/L Carbon Dioxide 24 (22-32) mmol/L Anion Gap 6 (2-11) mmol/L BUN 12 (6-24) mg/dL Creatinine 0.70 (0.51-0.95) mg/dL Est GFR ( Amer) 102.3 (>60) Est GFR (Non-Af Amer) 79.5 (>60) BUN/Creatinine Ratio 17.1 (8-20) Glucose 97 (70-100) mg/dL Lactic Acid (0.5-2.0) mmol/L Calcium 8.1 L (8.6-10.3) mg/dL Total Bilirubin 2.80 H (0.2-1.0) mg/dL AST 93 H (13-39) U/L ALT 73 H (7-52) U/L Alkaline Phosphatase 167 H (34-104) U/L Troponin I 0.01 (<0.04) ng/mL Total Protein 6.1 L (6.4-8.9) g/dL Albumin 2.7 L (3.2-5.2) g/dL Globulin 3.4 (2-4) g/dL Albumin/Globulin Ratio 0.8 L (1-3) 17 Range/Units 21:50 WBC (3.5-10.8) 10^3/ul RBC (4.0-5.4) 10^6/ul Hgb (12.0-16.0) g/dl Hct (35-47) % MCV (80-97) fL MCH (27-31) pg MCHC (31-36) g/dl RDW (10.5-15) % Plt Count (150-450) 10^3/ul MPV (7.4-10.4) um3 Neut % (Auto) (38-83) % Lymph % (Auto) (25-47) % [place] % (Auto) (1-9) % Eos % (Auto) (0-6) % Baso % (Auto) (0-2) % Absolute Neuts (auto) (1.5-7.7) 10^3/ul Absolute Lymphs (auto) (1.0-4.8) 10^3/ul Absolute Monos (auto) (0-0.8) 10^3/ul Absolute Eos (auto) (0-0.6) 10^3/ul Absolute Basos (auto) (0-0.2) 10^3/ul Absolute Nucleated RBC 10^3/ul Nucleated RBC % INR (Anticoag Therapy) (0.89-1.11) APTT (26.0-36.3) seconds Sodium (133-145) mmol/L Potassium (3.5-5.0) mmol/L Chloride (101-111) mmol/L Carbon Dioxide (22-32) mmol/L Anion Gap (2-11) mmol/L BUN (6-24) mg/dL Creatinine (0.51-0.95) mg/dL Est GFR ( Amer) (>60) Est GFR (Non-Af Amer) (>60) BUN/Creatinine Ratio (8-20) Glucose (70-100) mg/dL Lactic Acid 1.1 (0.5-2.0) mmol/L Calcium (8.6-10.3) mg/dL Total Bilirubin (0.2-1.0) mg/dL AST (13-39) U/L ALT (7-52) U/L Alkaline Phosphatase (34-104) U/L Troponin I (<0.04) ng/mL Total Protein (6.4-8.9) g/dL Albumin (3.2-5.2) g/dL Globulin (2-4) g/dL Albumin/Globulin Ratio (1-3) Microbiology and Other Data: Microbiology 01/06/17 04:35 Nasal Screen MRSA (PCR)(MOSES) - Final Nasal Mrsa Negative Assess/Plan/Problems-Billing Assessment: - Patient Problems (1) Cholecystitis Current Visit: Yes Status: Acute Code(s): K81.9 - CHOLECYSTITIS, UNSPECIFIED SNOMED Code(s): 20025031 Comment: Continue pip/carl, IV fluids. CMP, CBC, lipase 01/07. Message for Dr. Rivera to call me back regarding consultation. (2) Multiple sclerosis Current Visit: No Status: Chronic Code(s): G35 - MULTIPLE SCLEROSIS SNOMED Code(s): 17616849 Comment: Resident of [facility]. She is wheelchair bound. Oral meds on hold for now. (3) HTN (hypertension) Current Visit: No Status: Chronic Code(s): I10 - ESSENTIAL (PRIMARY) HYPERTENSION SNOMED Code(s): 93298060 Comment: Amlodipine on hold.
[2017-01-06] MEDS: D5W 1/2 NS KCl 20 Meq 1000 ML* 1,000 ML IV SCH (14:35)
--- NOTE | 2017-01-07 00:06 | CONS ---
GASTROENTEROLOGY CONSULTATION: DATE OF CONSULT: 01/06/17 PRIMARY CARE PHYSICIAN: Janusz Gardner MD HOSPITAL PROVIDER: Julian Wilkinson MD REASON FOR CONSULTATION: Abnormal liver tests. HISTORY OF PRESENT ILLNESS: Ms. Cyr is a pleasant 86-year-old female with a past medical history of multiple sclerosis, hypertension and breast cancer, who presented from [facility] with complaints of malaise, back pain, and abdominal pain. Upon arrival to the emergency room, she was noted to have abnormal liver enzymes and an ultrasound was performed, which revealed cholelithiasis with possible small calculus within the cystic duct. There was also pericholecystic fluid present along with hepatomegaly. A CT was further performed to evaluate the patient's abnormalities and it revealed findings suggestive of acute cholecystitis. The patient was admitted and Zosyn was initiated for further treatment. She was kept n.p.o. for bowel rest. This morning, her total bilirubin kathie from 2.80 to 3.40, at which point, Gastroenterology was consulted for further evaluation of possible common bile duct obstruction. The patient states her abdominal pain has slightly improved. She admits to a decrease in appetite. She does admit to some chills. Denies fevers. Denies nausea or vomiting at this time. No recent weight changes. No previous history of these symptoms. No change in bowel movements. No rectal bleeding/hematemesis. Of note, she was recently started on Levaquin for a UTI. PAST MEDICAL HISTORY: Multiple sclerosis. Hypertension. History of breast cancer. UTI. Chronic pain. PAST SURGICAL HISTORY: Hysterectomy. Left hip pinning. HOME MEDICATIONS: 1. Multivitamin. 2. Aspirin. 3. Cyclobenzaprine. 4. Gabapentin. 5. Melatonin. 6. Amlodipine. 7. Celecoxib. 8. Acetaminophen prn. 9. Bisacodyl suppositories prn. 10. Cholecalciferol. 11. MiraLAX. 12. Mucinex. 13. Senna-S. 14. Oxycodone and acetaminophen prn. 15. Levaquin. ALLERGIES: To AMINOPYRIDINE, BACLOFEN, which results in altered mental status; DALFAMPRIDINE, unknown reaction; IODIXANOL causes rashes. FAMILY HISTORY: Reviewed and noncontributory. SOCIAL HISTORY: No previous history of tobacco or alcohol. She is currently , resides at [facility]. REVIEW OF SYSTEMS: Has been reviewed on the 14-point scale, all pertinent positives and negatives have been noted above in the HPI and all others are otherwise negative. PHYSICAL EXAM: Vital signs have been reviewed in the chart and are stable. Generally, the patient is alert and oriented x3. She appears slightly uncomfortable due to mild abdominal pain and feeling weak. HEENT: Dry mucous membranes. Mild scleral icterus bilaterally. Cardiovascular Exam: Regular rate and rhythm. Pulmonary Exam: Clear to auscultation bilaterally. Abdominal Exam: Soft. Tenderness to palpation in the right upper quadrant and left upper quadrant. Positive bowel sounds in 4 quadrants. Nondistended. No rebound, guarding, or rigidity. Extremities: No clubbing, cyanosis, or edema. They are warm. Neurological Examination: Grossly intact. DIAGNOSTIC STUDIES/LAB DATA: WBCs 9.5, hemoglobin 11.8, hematocrit 34, platelets 203. Sodium 135, potassium 3.2, chloride 104, CO2 24, anion gap 7, BUN 10, creatinine 0.61, glucose 115, lactic acid 1.1, calcium 8.2. Total bilirubin 3.40, direct bilirubin 2.50, indirect bilirubin 0.9. AST 77, ALT 64, alkaline phosphatase 162, total protein 6.1, albumin 2.7. INR 1.48, PTT 36.0. ASSESSMENT AND PLAN: Ms. Cyr is a pleasant 86-year-old female with a history of multiple sclerosis, hypertension and breast cancer, who presents with malaise, abdominal pain, and back pain. On admission to the ER, she was noted to have elevated liver function tests with ultrasound and CT confirming acute cholecystitis. Gastroenterology was consulted this morning for a rise in total bilirubin from yesterday's lab testing and concern for biliary obstruction. 1. Abnormal liver tests with RUQ pain ~Abnormal liver tests are likely secondary to acute cholecystitis given no biliary ductal dilation seen on ultrasound and CAT scan performed yesterday. The patient currently states her abdominal pain has improved with Zosyn. We will continue to monitor the patient's liver enzymes. If total bilirubin rises tomorrow morning, we will consider an MRCP in the morning for further evaluation of the patient's biliary system. The patient is in agreement with this; however, she is adamantly refusing any further invasive testing including a possible ERCP and a laparoscopic cholecystectomy. Again, we will continue antibiotics for now and monitor liver enzymes closely and make further recommendations as the patient's clinical course progresses. Per nurse, son will be contacted to assist patient in making further medical decisions as she wants only conservative measures at this time. Case was discussed with Dr. Staley. Thank you for allowing us to participate in the care of your patient. If you should have any further questions or concerns, please do not hesitate to contact us. [id number]/[facility] #: [id number] [facility]
[2017-01-07] MEDS: Heparin VIAL(*) 5000 UNITS/ML VIAL (FIVE THOUSAND) SUBCUT SCH ×3 (00:23→17:30)
[2017-01-07] MEDS: ZOSYN 3.375 GM Q8H per EXTENDED INFUSION IVPB SCH ×6 (00:24→16:15)
[2017-01-07] MEDS: Omeprazole CAP* 20 MG PO SCH (05:30)
[2017-01-07 07:05] LABS: Albumin 2.9 g/dL (3.2-5.2); BUN/Creatinine Ratio 14.6 (8-20); Calcium 8.3 mg/dL (8.6-10.3); EGFR African American 158.1 (>60); EGFR Non-African American 122.9 (>60); Globulin 3.7 g/dL (2-4); Potassium 3.4 mmol/L (3.5-5.0); Total Bilirubin 3.4 mg/dL (0.2-1.0); Total Protein 6.6 g/dL (6.4-8.9)
[2017-01-07 07:41] LABS: Hematocrit 35 % (35-47); Hemoglobin 11.6 g/dl (12.0-16.0); Mean Corpuscular HGB Conc 34 g/dl (31-36); Mean Corpuscular Hemoglobin 28 pg (27-31); Mean Corpuscular Volume 84 fL (80-97); Mean Platelet Volume 8 um3 (7.4-10.4); Red Blood Count 4.13 10^6/ul (4.0-5.4); Red Cell Distribution Width 16 % (10.5-15); White Blood Count 7.9 10^3/ul (3.5-10.8)
[2017-01-07] MEDS: Acetaminophen TAB* 325 MG PO PRN (08:24)
[2017-01-07] MEDS: Docusate CAP* 100 MG PO SCH ×2 (08:25→20:53)
[2017-01-07] MEDS: D5W 1/2 NS KCl 20 Meq 1000 ML* 1,000 ML IV SCH ×2 (09:54→20:53)
--- NOTE | 2017-01-07 11:02 | PN ---
Subjective Date of Service: 01/07/17 Interval History: Pain control OK. Not hungry. No new c/o. Objective Active Medications: Acetaminophen (Tylenol Tab*) 650 mg PO Q6H PRN PRN Reason: FEVER/PAIN Last Admin: 01/07/17 08:24 Dose: 650 mg Docusate Sodium (Colace Cap*) 200 mg PO BID [facility] Last Admin: 01/07/17 08:25 Dose: 200 mg Heparin Sodium (Porcine) (Heparin Vial(*)) 5,000 units SUBCUT Q8H [facility] Last Admin: 01/07/17 08:25 Dose: 5,000 units Piperacillin Sod/Tazobactam (Sod 3.375 gm/ Sodium Chloride) 100 mls @ 25 mls/ hr IVPB Q8H [facility] Last Admin: 01/07/17 08:25 Dose: 25 mls/hr Potassium Chloride/Dextrose (D5w 1/2 Ns Kcl 20 Meq 1000 Ml*) 1,000 mls @ 100 mls/hr IV PER RATE [facility] Last Admin: 01/07/17 09:54 Dose: 100 mls/hr Omeprazole (Prilosec Cap*) 20 mg PO DAILY@0600 [facility] Last Admin: 01/07/17 05:30 Dose: 20 mg Ondansetron HCl (Zofran Inj*) 4 mg IV Q6H PRN PRN Reason: NAUSEA Vital Signs 01/06/17 01/06/17 01/06/17 11:11 14:53 19:42 Temperature 97.9 F 97.7 F Pulse Rate 72 70 Respiratory 20 18 18 Rate Blood Pressure 139/57 144/64 (mmHg) O2 Sat by Pulse 96 96 Oximetry 01/06/17 01/06/17 01/07/17 19:57 23:42 03:20 Temperature 97.7 F 97.6 F 97.4 F Pulse Rate 70 68 65 Respiratory 20 14 17 Rate Blood Pressure 147/66 146/60 147/57 (mmHg) O2 Sat by Pulse 96 93 95 Oximetry 01/07/17 01/07/17 08:00 08:39 Temperature 97.9 F Pulse Rate 68 Respiratory 16 16 Rate Blood Pressure 147/66 (mmHg) O2 Sat by Pulse 97 Oximetry Oxygen Devices in Use Now: None Appearance: Alert, partly up in bed. In fair spirits. Looks comfortable. Eyes: No Scleral Icterus Neck: NL Appearance and Movements; NL JVP, No Thyroid Enlargement, Masses Respiratory: Symmetrical Chest Expansion and Respiratory Effort, Clear to Auscultation, Clear to Percussion Cardiovascular: NL Sounds; No Murmurs; No JVD, RRR, No Edema, - Abdominal: - - soft, active BS. Mildly tender. Extremities: No Edema, No Clubbing, Cyanosis, - Skin: No Rash or Ulcers, No Nodules or Sclerosis, - Neurological: Alert and Oriented x 3, NL Sensation Result Diagrams: 01/07/17 07:30 01/07/17 05:15 Additional Lab and Data: Lab Results 01/05/17 01/05/17 01/05/17 Range/Units 21:50 21:50 21:50 WBC 9.4 (3.5-10.8) 10^3/ul RBC 4.05 (4.0-5.4) 10^6/ul Hgb 11.5 L (12.0-16.0) g/dl Hct 34 L (35-47) % MCV 85 (80-97) fL MCH 28 (27-31) pg MCHC 33 (31-36) g/dl RDW 16 H (10.5-15) % Plt Count 218 (150-450) 10^3/ul MPV 8 (7.4-10.4) um3 Neut % (Auto) 73.3 (38-83) % Lymph % (Auto) 19.2 L (25-47) % [place] % (Auto) 5.4 (1-9) % Eos % (Auto) 1.4 (0-6) % Baso % (Auto) 0.7 (0-2) % Absolute Neuts (auto) 6.9 (1.5-7.7) 10^3/ul Absolute Lymphs (auto) 1.8 (1.0-4.8) 10^3/ul Absolute Monos (auto) 0.5 (0-0.8) 10^3/ul Absolute Eos (auto) 0.1 (0-0.6) 10^3/ul Absolute Basos (auto) 0.1 (0-0.2) 10^3/ul Absolute Nucleated RBC 0.01 10^3/ul Nucleated RBC % 0.1 INR (Anticoag Therapy) 1.59 H (0.89-1.11) APTT 33.4 (26.0-36.3) seconds Sodium 134 (133-145) mmol/L Potassium 3.2 L (3.5-5.0) mmol/L Chloride 104 (101-111) mmol/L Carbon Dioxide 24 (22-32) mmol/L Anion Gap 6 (2-11) mmol/L BUN 12 (6-24) mg/dL Creatinine 0.70 (0.51-0.95) mg/dL Est GFR ( Amer) 102.3 (>60) Est GFR (Non-Af Amer) 79.5 (>60) BUN/Creatinine Ratio 17.1 (8-20) Glucose 97 (70-100) mg/dL Lactic Acid (0.5-2.0) mmol/L Calcium 8.1 L (8.6-10.3) mg/dL Total Bilirubin 2.80 H (0.2-1.0) mg/dL AST 93 H (13-39) U/L ALT 73 H (7-52) U/L Alkaline Phosphatase 167 H (34-104) U/L Troponin I 0.01 (<0.04) ng/mL Total Protein 6.1 L (6.4-8.9) g/dL Albumin 2.7 L (3.2-5.2) g/dL Globulin 3.4 (2-4) g/dL Albumin/Globulin Ratio 0.8 L (1-3) 01/05/17 Range/Units 21:50 WBC (3.5-10.8) 10^3/ul RBC (4.0-5.4) 10^6/ul Hgb (12.0-16.0) g/dl Hct (35-47) % MCV (80-97) fL MCH (27-31) pg MCHC (31-36) g/dl RDW (10.5-15) % Plt Count (150-450) 10^3/ul MPV (7.4-10.4) um3 Neut % (Auto) (38-83) % Lymph % (Auto) (25-47) % [place] % (Auto) (1-9) % Eos % (Auto) (0-6) % Baso % (Auto) (0-2) % Absolute Neuts (auto) (1.5-7.7) 10^3/ul Absolute Lymphs (auto) (1.0-4.8) 10^3/ul Absolute Monos (auto) (0-0.8) 10^3/ul Absolute Eos (auto) (0-0.6) 10^3/ul Absolute Basos (auto) (0-0.2) 10^3/ul Absolute Nucleated RBC 10^3/ul Nucleated RBC % INR (Anticoag Therapy) (0.89-1.11) APTT (26.0-36.3) seconds Sodium (133-145) mmol/L Potassium (3.5-5.0) mmol/L Chloride (101-111) mmol/L Carbon Dioxide (22-32) mmol/L Anion Gap (2-11) mmol/L BUN (6-24) mg/dL Creatinine (0.51-0.95) mg/dL Est GFR ( Amer) (>60) Est GFR (Non-Af Amer) (>60) BUN/Creatinine Ratio (8-20) Glucose (70-100) mg/dL Lactic Acid 1.1 (0.5-2.0) mmol/L Calcium (8.6-10.3) mg/dL Total Bilirubin (0.2-1.0) mg/dL AST (13-39) U/L ALT (7-52) U/L Alkaline Phosphatase (34-104) U/L Troponin I (<0.04) ng/mL Total Protein (6.4-8.9) g/dL Albumin (3.2-5.2) g/dL Globulin (2-4) g/dL Albumin/Globulin Ratio (1-3) Microbiology and Other Data: Microbiology 01/06/17 04:35 Nasal Screen MRSA (PCR)([facility]) - Final Nasal Mrsa Negative Assess/Plan/Problems-Billing Assessment: - Patient Problems (1) Cholecystitis Current Visit: Yes Status: Acute Code(s): K81.9 - CHOLECYSTITIS, UNSPECIFIED SNOMED Code(s): 65874630 Comment: Continue pip/carl, IV fluids. Lipase wnl 01/07, LFT's stable/sl better. Discussed with Dr. Rivera 01/06. Pt refused ERCP, surgery. I discussed changing her to oral antibiotics to facilitate discharge to [facility]. Palliative consult requested. (2) Multiple sclerosis Current Visit: No Status: Chronic Code(s): G35 - MULTIPLE SCLEROSIS SNOMED Code(s): 77469811 Comment: Resident of [facility]. She is wheelchair bound. Oral meds on hold for now. (3) HTN (hypertension) Current Visit: No Status: Chronic Code(s): I10 - ESSENTIAL (PRIMARY) HYPERTENSION SNOMED Code(s): 91655318 Comment: Amlodipine on hold.
[2017-01-08] MEDS: Heparin VIAL(*) 5000 UNITS/ML VIAL (FIVE THOUSAND) SUBCUT SCH ×2 (00:08→08:15)
[2017-01-08] MEDS: ZOSYN 3.375 GM Q8H per EXTENDED INFUSION IVPB SCH ×4 (00:08→08:51)
[2017-01-08] MEDS ORDERED: LORazepam TAB(*) 0.5 MG PO ONE (04:00)
[2017-01-08] MEDS ORDERED: Docusate CAP* 100 MG PO PRN (07:40)
--- NOTE | 2017-01-08 07:53 | PN ---
Progress Note - Progress Note Date of Service: 01/08/17 Note: Time spent on discharge 45 minutes/.
[2017-01-08] MEDS: Omeprazole CAP* 20 MG PO SCH (08:14)
--- NOTE | 2017-01-08 08:42 | TRS ---
DATE OF ADMISSION: 01/05/17 DATE OF TRANSFER: 01/08/17 HISTORY: This 85-year-old woman presented with malaise. She's a long-term resident of [facility]. She had back pain two days ago. On admission, she only complained of generalized weakness and malaise. She's a little bit lethargic. Ultrasound of the abdomen showed cholelithiasis of the small stone in the cystic duct. Liver function tests were elevated. CT scan of the abdomen was also compatible with cholecystitis. The patient was treated with intravenous piperacillin, tazobactam and fluids. Talking to the patient, she was really quite opposed to any type of procedure or surgery. Dr. Rivera did a GI consultation and obtained the same reaction from the patient. The patient was very much interested in hospice type of care. She did agree to a trial of oral antibiotics. The patient is being advanced to a low-fat diet. Her blood pressure medicine was withheld for a while; it's being restarted at a lower dose as her blood pressure is a little bit on the high side at the time of discharge. Many of her other medications were discontinued. At the time of discharge, her abdomen was no longer tender. However, she remained quite weak and lethargic, although she was able to make her wishes known quite well. FINAL DIAGNOSES: 1. Cholecystitis. 2. Multiple sclerosis. 3. Hypertension. TRANSFER MEDICATIONS: 1. Amoxicillin clavulanic 875 mg bid for seven more days. 2. Omeprazole 20 mg daily. 3. Amlodipine 5 mg daily. 4. Multivitamin with minerals daily. 5. Aspirin 325 mg daily. 6. Cyclobenzaprine 10 mg hs prn. 7. Cholecalciferol 50,000 units orally monthly. 8. Bisacodyl suppository 10 mg daily prn. 9. Oxycodone/acetaminophen 5/325 mg every 6 hours prn. [id number]/[facility] #: [id number] [facility]
[2017-01-08] MEDS ORDERED: amLODIPine TAB* 5 MG PO SCH (09:00)
[2017-01-08] MEDS ORDERED: Amoxicillin/Clavulanate TAB* 875 MG PO SCH ×2 (09:00→21:00)
[2017-01-08 10:43] VITALS: BP 175/89
--- NOTE | 2017-01-08 12:18 | ED ---
Kim Jaimes Thomas, scribed for Jean Carlos Camp MD on 01/05/17 at 2234 . Back Pain - HPI Summary HPI Summary: The patient is an 86 y/o F BIBA from [facility] c/o back pain that began two days ago and weakness. She rates the pain 5/10 and describes it as aching. The pain is aggravated and alleviated by nothing. The pain is constant. She additionally c/o bilateral leg pain and intermittent abdominal pain. She denies vomiting. 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 She is alert and oriented x3. PMHx: MS, HTN, UTIs, arthritis. - History of Current Complaint Chief Complaint: EDWeakness Stated Complaint: UTI/FEVER Time Seen by Provider: 01/05/17 21:55 Hx Obtained From: Patient, Medical Records Onset/Duration: Lasting Days - back pain onset two days ago, Still Present Onset/Duration: Still Present Timing: Constant Pain Intensity: 5 Pain Scale Used: 0-10 Numeric Character: Aching Aggravating Symptom(s): Nothing Alleviating Symptom(s): Nothing Associated Signs And Symptoms: Positive: Weakness, Abdominal Pain - intermittent , Other - Bilateral leg pain; NEGATIVE: vomiting. - Allergies/Home Medications Allergies/Adverse Reactions: Allergies Allergy/AdvReac Type Severity Reaction Status Date / Time Aminopyridine [From Ampyra] Allergy Unknown Verified 01/05/17 22:08 Reaction Details Baclofen Allergy Altered Verified 01/05/17 22:08 Mental Status Dalfampridine [From Ampyra] Allergy Unknown Verified 01/05/17 22:08 Reaction Details Iodixanol [From Visipaque] Allergy Rash Verified 01/05/17 22:08 PMH/Surg Hx/FS Hx/Imm Hx Previously Healthy: No Endocrine/Hematology History: Denies: Hx Anticoagulant Therapy, Hx Diabetes, Hx Thyroid Disease Cardiovascular History: Reports: Hx Hypertension Respiratory History: Reports: Hx Sleep Apnea, Other Respiratory Problems/ Disorders - SLEEP APNEA Denies: Hx Asthma, Hx Chronic Obstructive Pulmonary Disease (COPD) GI History: Reports: Other GI Disorders - constipation Denies: Hx Ulcer Musculoskeletal History: Reports: Hx Arthritis, Hx Back Problems, Other Musculoskeletal History - MS Sensory History: Reports: Hx Cataracts, Hx Contacts or Glasses - States uses glasses though not with her Denies: Hx Hearing Aid Opthamlomology History: Reports: Hx Cataracts, Hx Contacts or Glasses - States uses glasses though not with her Neurological History: Reports: Other Neuro Impairments/Disorders - Multiple Sclerosis - Cancer History Cancer Type, Location and Year: Breast Cancer 1999, 2009 Lumpectomy. Basal Cell Carcinoma - working on removing them - Surgical History Surgery Procedure, Year, and Place: Lumpectomies, Hysterectomy, Tonsilectomy 193, Appendectomy 1947, Left Wrist surgery 1971, Hip Replacement Right 1992, . Infectious Disease History: No Infectious Disease History: Denies: Hx Hepatitis, Hx Human Immunodeficiency Virus (HIV), Traveled Outside the [place] in Last 30 Days - Family History Known Family History: Negative: Cardiac Disease - Social History Occupation: Retired Lives: [facility] Alcohol Use: Rare Alcohol Amount: States "a glass or 2 of whiskey" but "not very often" Hx Substance Use: No Substance Use Type: Reports: None Hx Tobacco Use: No Smoking Status (MU): Never Smoked Tobacco Review of Systems Negative: Fever, Chills Negative: Erythema - eyes Negative: Sore Throat Negative: Chest Pain Negative: Shortness Of Breath, Cough Positive: Abdominal Pain - intermittent. Negative: Vomiting Negative: dysuria, hematuria Positive: Other - Back pain onset two days ago, bilateral leg pain. Negative: Myalgia, Edema - legs Negative: Rash Neurological: Other - NEGATIVE: dizziness Positive: Weakness All Other Systems Reviewed And Are Negative: Yes Physical Exam - Summary Physical Exam Summary: Constitutional: Well-developed, Well-nourished, Alert. (-) Distressed. She is fatigued. She smells of urinary incontinence. Skin: Warm, Dry HENT: Normocephalic; Atraumatic. Dry mucous membranes. Eyes: Conjunctiva normal Neck: Musculoskeletal ROM normal neck. (-) JVD, (-) Stridor, (-) Tracheal deviation Cardio: Rhythm regular, rate normal, Heart sounds normal; Intact distal pulses; The pedal pulses are 2+ and symmetric. Radial pulses are 2+ and symmetric. (-) Murmur Pulmonary/Chest wall: Diminished breath sounds at the left lung base. Effort normal. (-) Respiratory distress, (-) Wheezes, (-) Rales Abd: She has a protuberant belly. Soft, (-) Tenderness, (-) Distension, (-) Guarding, (-) Rebound Musculoskeletal: (-) Edema Lymph: (-) Cervical adenopathy Neuro: Alert, Oriented x3 Psych: Mood and affect Normal Triage Information Reviewed: Yes Vital Signs On Initial Exam: Initial Vitals Temp Pulse Resp BP Pulse Ox 98.6 F 73 18 128/56 95 01/05/17 21:19 01/05/17 21:19 01/05/17 21:19 01/05/17 21:19 01/05/17 21:19 Vital Signs Reviewed: Yes - [place] Coma Scale Coma Scale Total: 15 Diagnostics - Vital Signs Vital Signs Temp Pulse Resp BP Pulse Ox 01/05/17 21:24 95 01/05/17 21:19 98.6 F 73 18 128/56 95 - Laboratory Lab Results: Lab Results 01/05/17 01/05/17 01/05/17 Range/Units 21:50 21:50 21:50 WBC 9.4 (3.5-10.8) 10^3/ul RBC 4.05 (4.0-5.4) 10^6/ul Hgb 11.5 L (12.0-16.0) g/dl Hct 34 L (35-47) % MCV 85 (80-97) fL MCH 28 (27-31) pg MCHC 33 (31-36) g/dl RDW 16 H (10.5-15) % Plt Count 218 (150-450) 10^3/ul MPV 8 (7.4-10.4) um3 Neut % (Auto) 73.3 (38-83) % Lymph % (Auto) 19.2 L (25-47) % [place] % (Auto) 5.4 (1-9) % Eos % (Auto) 1.4 (0-6) % Baso % (Auto) 0.7 (0-2) % Absolute Neuts (auto) 6.9 (1.5-7.7) 10^3/ul Absolute Lymphs (auto) 1.8 (1.0-4.8) 10^3/ul Absolute Monos (auto) 0.5 (0-0.8) 10^3/ul Absolute Eos (auto) 0.1 (0-0.6) 10^3/ul Absolute Basos (auto) 0.1 (0-0.2) 10^3/ul Absolute Nucleated RBC 0.01 10^3/ul Nucleated RBC % 0.1 INR (Anticoag Therapy) 1.59 H (0.89-1.11) APTT 33.4 (26.0-36.3) seconds Sodium 134 (133-145) mmol/L Potassium 3.2 L (3.5-5.0) mmol/L Chloride 104 (101-111) mmol/L Carbon Dioxide 24 (22-32) mmol/L Anion Gap 6 (2-11) mmol/L BUN 12 (6-24) mg/dL Creatinine 0.70 (0.51-0.95) mg/dL Est GFR ( Amer) 102.3 (>60) Est GFR (Non-Af Amer) 79.5 (>60) BUN/Creatinine Ratio 17.1 (8-20) Glucose 97 (70-100) mg/dL Lactic Acid (0.5-2.0) mmol/L Calcium 8.1 L (8.6-10.3) mg/dL Total Bilirubin 2.80 H (0.2-1.0) mg/dL AST 93 H (13-39) U/L ALT 73 H (7-52) U/L Alkaline Phosphatase 167 H (34-104) U/L Troponin I 0.01 (<0.04) ng/mL Total Protein 6.1 L (6.4-8.9) g/dL Albumin 2.7 L (3.2-5.2) g/dL Globulin 3.4 (2-4) g/dL Albumin/Globulin Ratio 0.8 L (1-3) 01/05/17 Range/Units 21:50 WBC (3.5-10.8) 10^3/ul RBC (4.0-5.4) 10^6/ul Hgb (12.0-16.0) g/dl Hct (35-47) % MCV (80-97) fL MCH (27-31) pg MCHC (31-36) g/dl RDW (10.5-15) % Plt Count (150-450) 10^3/ul MPV (7.4-10.4) um3 Neut % (Auto) (38-83) % Lymph % (Auto) (25-47) % [place] % (Auto) (1-9) % Eos % (Auto) (0-6) % Baso % (Auto) (0-2) % Absolute Neuts (auto) (1.5-7.7) 10^3/ul Absolute Lymphs (auto) (1.0-4.8) 10^3/ul Absolute Monos (auto) (0-0.8) 10^3/ul Absolute Eos (auto) (0-0.6) 10^3/ul Absolute Basos (auto) (0-0.2) 10^3/ul Absolute Nucleated RBC 10^3/ul Nucleated RBC % INR (Anticoag Therapy) (0.89-1.11) APTT (26.0-36.3) seconds Sodium (133-145) mmol/L Potassium (3.5-5.0) mmol/L Chloride (101-111) mmol/L Carbon Dioxide (22-32) mmol/L Anion Gap (2-11) mmol/L BUN (6-24) mg/dL Creatinine (0.51-0.95) mg/dL Est GFR ( Amer) (>60) Est GFR (Non-Af Amer) (>60) BUN/Creatinine Ratio (8-20) Glucose (70-100) mg/dL Lactic Acid 1.1 (0.5-2.0) mmol/L Calcium (8.6-10.3) mg/dL Total Bilirubin (0.2-1.0) mg/dL AST (13-39) U/L ALT (7-52) U/L Alkaline Phosphatase (34-104) U/L Troponin I (<0.04) ng/mL Total Protein (6.4-8.9) g/dL Albumin (3.2-5.2) g/dL Globulin (2-4) g/dL Albumin/Globulin Ratio (1-3) Result Diagrams: 01/07/17 07:30 01/07/17 05:15 Lab Statement: Any lab studies that have been ordered have been reviewed, and results considered in the medical decision making process. Back Pain Course/Dx - Course Assessment/Plan: The patient is an 86 y/o F BIBA from [facility] c/o back pain that began two days ago and weakness. She rates the pain 5/10 and describes it as aching. The pain is aggravated and alleviated by nothing. The pain is constant. She additionally c/o bilateral leg pain and intermittent abdominal pain. She denies vomiting. 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 She is alert and oriented x3. PMHx: MS, HTN, UTIs, arthritis. Bloodwork and UA was obtained. I ordered an Abdo US with results pending at time of admission. I consulted with kelly Cruz, at 22:52 who will admit the patient. - Diagnoses Provider Diagnoses: UTI (urinary tract infection), Jaundice, Weakness - Provider Notifications Discussed Care Of Patient With: Julian Wilkinson Time Discussed With Above Provider: 22:52 Instructed by Provider To: Other - I consulted with kelly Cruz , at 22:52 who will admit the patient. Discharge - Discharge Plan Condition: Fair Disposition: ADMITTED TO [facility] documentation as recorded by the Kim mirza Thomas accurately reflects the service I personally performed and the decisions made by me, Jean Carlos Camp MD.
== END 2017-01-08 11:05 | DRG 445 ==
LOC: ED 21:01 → SSU 22:52 → MED 01-06 00:33
PROVIDERS: ADMIT Hospitalist; ATTEND Internal Medicine
DX: K80.00 Calculus of gallbladder with acute cholecystitis without obstruction (principal); J90 Pleural effusion, not elsewhere classified; G35 Multiple sclerosis; I10 Essential (primary) hypertension; G89.29 Other chronic pain; Z87.440 Personal history of urinary (tract) infections; Z85.3 Personal history of malignant neoplasm of breast; Z79.1 Long term (current) use of non-steroidal anti-inflammatories (NSAID); Z79.82 Long term (current) use of aspirin; Z79.891 Long term (current) use of opiate analgesic; Z79.899 Other long term (current) drug therapy; Z88.8 Allergy status to other drugs, medicaments and biological substances; Z66 Do not resuscitate
CPT/HCPCS: 36415; 74176; 76705; 80048; 80053; 80076; 81003; 81015; 83605; 83690; 84484; 85025; 85027; 85610; 85730; 87040; 87077; 87086; 87186; 87641; A9270-GY; J1644; J2543